=== PATIENT | female | born 1970 | race Caucasian/White ===

== ENCOUNTER 2020-05-18 15:49 | Emergency (ER) | payer BC ==
--- NOTE | 2020-05-18 16:15 | ER Document Report ---
ED Medical Screen (RME) - General Chief Complaint: Abnormal Lab Results Stated Complaint: ABNORMAL LABS/(CHEMO PATIENT) Time Seen by Provider: 05/18/20 16:12 Mode of Arrival: Ambulatory Notes: This is a 49-year-old female presented to the emergency room today with shortness of breath intermittent palpitations fluttering she is a cancer patient recently had a MUGA scan and her ejection fraction has dropped 20 points from 60-40 over the last 3 months.
--- NOTE | 2020-05-18 16:54 | RADIOLOGY REPORT (SQ) ---
EXAM DESCRIPTION: CHEST SINGLE VIEW IMAGES COMPLETED DATE/TIME: 05/18/2020 4:40 pm REASON FOR STUDY: pain sp fall COMPARISON: None. EXAM PARAMETERS: NUMBER OF VIEWS: One view. TECHNIQUE: Single frontal radiographic view of the chest acquired. RADIATION DOSE: NA LIMITATIONS: None. FINDINGS: LUNGS AND PLEURA: No opacities, masses or pneumothorax. No pleural effusion. MEDIASTINUM AND HILAR STRUCTURES: No masses. Contour normal. HEART AND VASCULAR STRUCTURES: Heart normal in size. Normal vasculature. BONES: No acute findings. HARDWARE: Right subclavian based chest port with catheter tip at SVC. OTHER: No other significant finding. IMPRESSION: No evidence of acute cardiopulmonary process. TECHNICAL DOCUMENTATION: JOB ID: [id number] 2010 [employer]- All Rights Reserved Reading location - IP/workstation name: [email or web address]
[2020-05-18 17:21] LABS: ABSOLUTE EOSINOPHILS # (AUTO) 0.1 10^3/uL (0.0-0.6); ABSOLUTE LYMPHOCYTES (AUTO) 0.8 10^3/uL (0.5-4.7); ABSOLUTE MONOCYTES (AUTO) 0.5 10^3/uL (0.1-1.4); ABSOLUTE NEUT (AUTO) 2.8 10^3/uL (1.7-8.2); BASOPHILS % (AUTO) 0.8 % (0-2); EOSINOPHILS % (AUTO) 1.5 % (0-6); HEMATOCRIT 38.3 % (36.0-47.0); HEMOGLOBIN 13.1 g/dL (12.0-15.5); MEAN CORPUSCULAR HGB CONC 34.3 g/dL (32.0-36.0); MEAN CORPUSCULAR VOLUME 91 fl (80-97); MONOCYTES % (AUTO) 11.2 % (3-13); PLATELET COUNT 269 10^3/uL (150-450); RED BLOOD COUNT 4.23 10^6/uL (3.72-5.28); RED CELL DISTRIBUTION WIDTH 14.3 % (11.5-14.0); SEGMENTED NEUTROPHILS % (AUTO) 66.5 % (42-78); TOTAL CELLS COUNTED % (AUTO) 100 %; WHITE BLOOD COUNT 4.1 10^3/uL (4.0-10.5)
[2020-05-18 17:39] LABS: ALBUMIN 4.3 g/dL (3.5-5.0); ALKALINE PHOSPHATASE 84 U/L (38-126); ANION GAP 7 (5-19); ASPARTATE AMINO TRANSFERASE 34 U/L (14-36); BILIRUBIN,TOTAL 0.5 mg/dL (0.2-1.3); BLOOD UREA NITROGEN 17 mg/dL (7-20); CALCIUM 9.5 mg/dL (8.4-10.2); CARBON DIOXIDE 27 mmol/L (22-30); CHLORIDE 103 mmol/L (98-107); GLUCOSE 114 mg/dL (75-110); POTASSIUM 4.4 mmol/L (3.6-5.0); TOTAL PROTEIN 7.1 g/dL (6.3-8.2)
--- NOTE | 2020-05-18 17:56 | ER Document Report ---
ED General - General Chief Complaint: Shortness Of Breath Stated Complaint: ABNORMAL LABS/(CHEMO PATIENT) Time Seen by Provider: 05/18/20 16:12 Mode of Arrival: Ambulatory - [facility] Notes: Chief complaint: Generalized weakness, palpitations, chest pain and dyspnea History of present illness: This is a 49-year-old female diagnosed with breast cancer approximately 1 year ago status post bilateral mastectomy, XRT and chemotherapy presenting today with complaint of insidious onset of generalized weakness, intermittent palpitations, intermittent fleeting chest pain and dyspnea over the past 1 month. Patient has just moved here from the [facility] and has no local physicians. She had a telehealth visit with her previous caregiver within the last 24 hours and was advised that a MUGA scan she had done as an outpatient last week demonstrates that her previously normal ejection fraction has dropped down to about 45%. She was advised to come to the hospital for further evaluation. Patient denies any focal neurologic symptoms. She denies any syncope or presyncope. Patient is not on any type of anticoagulation. She denies any known personal nor familial history of thromboembolic disease. She denies any pain or swelling of lower extremities. She denies any recent trauma. She denies any recent surgery. Patient describes intermittent minor palpitations. Patient reports intermittent sharp tingling discomfort in her anterior chest which lasts a few seconds at a time. No radiation of the pain. Patient is a non-smoker. She is not diabetic. Family history negative for CAD. No history of hyperlipidemia. She is not obese. HEART Score: HISTORY 0 ECG 0 AGE 1 RISK FACTORS 0 TROPONIN 0 TOTAL: 1 If HEART score is = 3 AND both tronponin measurments are normal, the 30 day risk of a major adverse cardiac event (all-cause mortality, myocardia infarction or need for coronary revscularization) is < 1% (Sensitivity 100%, NPV 100%). No current prescription medications. No known allergies. PERC SCORE HADCLOTS) H no hormone administration A Age>50 D NO DVT/PE previously C no coughing up blood L no leg swelling unilaterally O O2 sat greater than 95% T Tachycardia S no surgery/Trauma recently - Related Data Allergies/Adverse Reactions: No Known Allergies Allergy (Verified 05/18/20 16:17) Past Medical History - General Information source: Patient, Relative - Social History Smoking Status: Never Smoker Chew tobacco use (# tins/day): No Drug Abuse: None Lives with: Spouse/Significant other Family History: Reviewed & Not Pertinent - Past Medical History Cardiac Medical History: Reports: None Denies: Hx Pulmonary Embolism Pulmonary Medical History: Reports: None Endocrine Medical History: Denies: Hx Diabetes Mellitus Type 1, Hx Diabetes Mellitus Type 2 Malignancy Medical History: Reports: Hx Breast Cancer Past Surgical History: Reports: Hx Breast Surgery Review of Systems - Review of Systems Notes: Constitutional: Negative for fever. HENT: Negative for sore throat. Eyes: Negative for visual changes. Cardiovascular: As per HPI. Respiratory: As per HPI. No cough no sputum production.. Gastrointestinal: Negative for abdominal pain, vomiting or diarrhea. Genitourinary: Negative for dysuria. Musculoskeletal: Negative for back pain. Skin: Negative for rash. Neurological: Negative for headaches, focal weakness or numbness. 10 point ROS negative except as marked above and in HPI. Physical Exam - Vital signs Vitals: Temp Pulse Resp BP Pulse Ox 98.7 F 110 H 22 H 114/83 100 05/18/20 16:07 05/18/20 16:07 05/18/20 16:07 05/18/20 16:07 05/18/20 16:07 - Notes Notes: GENERAL: Well-developed well-nourished female approximately stated age appearing in no acute distress. SKIN: Good turgor no rashes. HEAD: Normocephalic atraumatic. EYES: PERRLA. EOMI. Conjunctivae and sclerae clear. EARS: CANALS AND TMS CLEAR. NOSE: CLEAR. MOUTH: Moist mucosa. Good dentition. No stridor or edema. No drooling. NECK: Supple. No masses or thyromegaly. No adenopathy. Carotids 2+ without bruits. No JVD. BACK: Symmetrical without tenderness. CHEST: Respirations unlabored. Breath sounds clear and symmetrical. HEART: Tachycardic regular rhythm. No murmur gallop or rub. ABDOMEN: Soft nontender without masses, organomegaly or rebound. Bowel sounds normally active. No bruits. GENITALIA: Deferred. EXTREMITIES: No edema. No calf tenderness. Cap refill less than 1.5 seconds. Dorsalis pedis and posterior tibial pulses 3+ and symmetrical. NEUROLOGICAL: GCS 15. Alert and oriented x3. Normal gait. Fluent speech. Cranial nerves II through XII intact. Sensorimotor and cerebellar normal. Normal tone. PSYCHIATRIC: Appropriate affect. Course - Re-evaluation Re-evalutation: 05/18/20 19:45 Patient has a normal troponin. She has a normal BNP. She has a normal chest x- ray. Her d-dimer is also normal. She has a documented decrease in ejection fraction on MUGA scan done a week ago which is probably due to cancer chemotherapy she is received. I think she stable for outpatient cardiology follow-up she will be referred to Dr. Mills. I will also refer her to Dr. Kim from oncology and to a primary care physician. Findings, clinical impression and plan of treatment have been discussed with pat ient/family. Understanding of current findings and recommendations has been acknowledged by them and there is agreement regarding disposition and follow-up. - Vital Signs Vital signs: Temp Pulse Resp BP Pulse Ox 98.7 F 110 H 14 112/79 100 05/18/20 16:07 05/18/20 16:07 05/18/20 19:00 05/18/20 19:00 05/18/20 19:00 - Laboratory Result Diagrams: 05/18/20 16:52 05/18/20 16:52 Laboratory results interpreted by me: 05/18/20 05/18/20 16:52 16:52 RDW 14.3 H Sodium 136.9 L Glucose 114 H ALT 46 H - EKG Interpretation by Me Additional EKG results interpreted by me: 05/18/20 19:41 Twelve-lead EKG from 1638 hrs. is reviewed contemporaneously by me showing sinus tachycardia rate 106. QRS axis is normal at +36 degrees. Intervals are normal. No acute ST changes. No old tracing for comparison. Indication for current study: Chest pain. 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 Schedule appointment with primary care, cardiology and oncology as directed. Referrals: [facility] [Provider Group] - Follow up as needed MACARENA KIM MD [ACTIVE STAFF] - Follow up as needed TINY MILLS MD [ACTIVE PROVISIONAL STAFF] - Follow up as needed
[2020-05-18 19:37] VITALS: BP 112/79
--- NOTE | 2020-05-18 20:05 | EKG REPORT ---
SEVERITY:- ABNORMAL ECG - SINUS TACHYCARDIA PROBABLE LEFT ATRIAL ABNORMALITY NONSPECIFIC T ABNORMALITIES, LATERAL LEADS : Confirmed by: Janice Buckner MD 18-May-2020 20:05:01
== END 2020-05-18 20:23 | disposition home or self-care (01) ==
LOC: ER 15:49
DX: I42.7 Cardiomyopathy due to drug and external agent (principal); T45.1X5A Adverse effect of antineoplastic and immunosuppressive drugs, initial encounter; C50.919 Malignant neoplasm of unspecified site of unspecified female breast; R53.1 Weakness; R00.2 Palpitations; R07.9 Chest pain, unspecified; R06.00 Dyspnea, unspecified; R00.0 Tachycardia, unspecified
CPT/HCPCS: 36415; 71045; 80053; 83735; 83880; 84484; 85025; 85379; 93005; 93010; 99285

== ENCOUNTER 2020-05-29 11:51 | Emergency (ER) | payer BC ==
[2020-05-29 11:59] VITALS: BP 123/79
--- NOTE | 2020-05-29 12:30 | ER Document Report ---
ED Medical Screen (RME) - General Chief Complaint: Headache Stated Complaint: HEADACHE Time Seen by Provider: 05/29/20 12:27 Mode of Arrival: Ambulatory Information source: Patient Notes: 49-year-old female presents to ED for complaint that she feels like something is in her head and it feels like something has hit the back of her head will hurt and then the pain comes to the front of her head. She states she has not had any injuries. She was diagnosed with breast cancer a year ago had a mastectomy in November of this year was on the chemo infusions recently her MUGA scan was at 45% so they had to stop the infusions. She states the headache is just been for the last several days. She is alert oriented respirations are nonlabored speaking in full sentences. She may end up needing a MRI we will start with blood work urine and a CAT scan. I have greeted and performed a rapid initial assessment of this patient. A comprehensive ED assessment and evaluation of the patient, analysis of test results and completion of medical decision making process will be conducted by an additional ED providers. - Related Data Allergies/Adverse Reactions: No Known Allergies Allergy (Verified 05/18/20 16:17) Past Medical History - Social History Frequency of alcohol use: None Drug Abuse: None - Past Medical History Cardiac Medical History: Denies: Hx Pulmonary Embolism Endocrine Medical History: Denies: Hx Diabetes Mellitus Type 1, Hx Diabetes Mellitus Type 2 Malignancy Medical History: Reports: Hx Breast Cancer Past Surgical History: Reports: Hx Breast Surgery Physical Exam - Vital signs Vitals: Temp Pulse Resp BP Pulse Ox 98.6 F 89 20 123/79 97 05/29/20 11:57 05/29/20 11:57 05/29/20 11:57 05/29/20 11:57 05/29/20 11:57 Course - Vital Signs Vital signs: Temp Pulse Resp BP Pulse Ox 98.6 F 89 20 123/79 97 05/29/20 11:57 05/29/20 11:57 05/29/20 11:57 05/29/20 11:57 05/29/20 11:57
[2020-05-29 13:02] LABS: ABSOLUTE EOSINOPHILS # (AUTO) 0.1 10^3/uL (0.0-0.6); ABSOLUTE LYMPHOCYTES (AUTO) 0.8 10^3/uL (0.5-4.7); ABSOLUTE MONOCYTES (AUTO) 0.4 10^3/uL (0.1-1.4); ABSOLUTE NEUT (AUTO) 1.7 10^3/uL (1.7-8.2); EOSINOPHILS % (AUTO) 1.8 % (0-6); HEMATOCRIT 35.4 % (36.0-47.0); HEMOGLOBIN 12.2 g/dL (12.0-15.5); LYMPHOCYTES % (AUTO) 25.8 % (13-45); MEAN CORPUSCULAR HEMOGLOBIN 31.7 pg (27.0-33.4); MEAN CORPUSCULAR HGB CONC 34.6 g/dL (32.0-36.0); MEAN CORPUSCULAR VOLUME 92 fl (80-97); MONOCYTES % (AUTO) 14.7 % (3-13); PLATELET COUNT 250 10^3/uL (150-450); RED BLOOD COUNT 3.86 10^6/uL (3.72-5.28); RED CELL DISTRIBUTION WIDTH 14.4 % (11.5-14.0); SEGMENTED NEUTROPHILS % (AUTO) 56.7 % (42-78); TOTAL CELLS COUNTED % (AUTO) 100 %
[2020-05-29 13:15] LABS: ALBUMIN 3.9 g/dL (3.5-5.0); ALKALINE PHOSPHATASE 70 U/L (38-126); ASPARTATE AMINO TRANSFERASE 29 U/L (14-36); BILIRUBIN,TOTAL 0.5 mg/dL (0.2-1.3); BLOOD UREA NITROGEN 14 mg/dL (7-20); CALCIUM 9.1 mg/dL (8.4-10.2); GLUCOSE 91 mg/dL (75-110); TOTAL PROTEIN 6.5 g/dL (6.3-8.2)
[2020-05-29 13:20] LABS: ANION GAP 5 (5-19); CARBON DIOXIDE 26 mmol/L (22-30); CHLORIDE 107 mmol/L (98-107)
[2020-05-29] MEDS ORDERED: NORMAL SALINE 1000 ML 1,000 ML IV ONE (13:25)
[2020-05-29] MEDS ORDERED: HYDROMORPHONE HCL INJ/PF 2 MG/ML AMPULE IV ONE (13:25)
--- NOTE | 2020-05-29 13:30 | ER Document Report ---
ED General - General Chief Complaint: Headache Stated Complaint: HEADACHE Time Seen by Provider: 05/29/20 12:27 Mode of Arrival: Ambulatory Notes: Patient is a 49-year-old white female with a history of breast cancer status post mastectomy who was on chemotherapy but had to stop due to an EF of 45% who presents to the emergency department with a chief complaint of pain in the head. She states it does not feel like a headache per se. She reports that about a week ago she started to get these pains that are somewhat random in nature. She states it feels as though someone strikes her in the back of the left head occipital region and the pain radiates around to the left frontal area and continues to throb in the left frontal area. She states she is noticed that movement of the neck seems to worsen the pain. She states that if she goes from lying flat to sitting up the pain intensifies. She also states she was walking in [facility] a couple days ago and looked up which provoked pain. She states she is been very careful not to move her neck much recently because she is noticed that any neck movements as of late will cause that sudden striking pain to the back of the head. She states despite these episodes of sudden pain in the back she has an ongoing constant throbbing primarily in the left frontal area. She admits to some mild occasional dizziness that is associated with the severe attacks. She denies any visual disturbances. Denies any numbness, tingling or weakness. Denies any chest pain or shortness of breath. No head injury or loss of consciousness. No syncopal episodes. - Related Data Allergies/Adverse Reactions: No Known Allergies Allergy (Verified 05/18/20 16:17) Past Medical History - General Information source: Patient - Social History Smoking Status: Never Smoker Frequency of alcohol use: None Drug Abuse: None Family History: Reviewed & Not Pertinent - Past Medical History Cardiac Medical History: Denies: Hx Pulmonary Embolism Endocrine Medical History: Denies: Hx Diabetes Mellitus Type 1, Hx Diabetes Mellitus Type 2 Malignancy Medical History: Reports: Hx Breast Cancer Past Surgical History: Reports: Hx Breast Surgery Review of Systems - Review of Systems Constitutional: denies: Fever EENT: denies: Blurred vision Cardiovascular: denies: Chest pain Respiratory: denies: Short of breath Gastrointestinal: denies: Abdominal pain, Diarrhea, Nausea, Vomiting Genitourinary: denies: Pain Female Genitourinary: denies: Vaginal discharge Musculoskeletal: Neck pain Skin: denies: Lesions Hematologic/Lymphatic: denies: Easy bruising Neurological/Psychological: Headaches. denies: Lost consciousness Physical Exam - Vital signs Vitals: Temp Pulse Resp BP Pulse Ox 98.6 F 89 20 123/79 97 05/29/20 11:57 05/29/20 11:57 05/29/20 11:57 05/29/20 11:57 05/29/20 11:57 - General General appearance: Alert Notes: Appears uncomfortable. Holds her neck very still with a slight downward gaze - HEENT Head: Normocephalic, Atraumatic. No: Caldwell's sign, Ecchymosis, Open wounds, Racoon's eyes, Tenderness Eyes: Normal Conjunctiva: Normal Extraocular movements intact: Yes Eyelashes: Normal Pupils: PERRL Ears: Normal External canal: Normal Tympanic membrane: Normal Nasal: Normal Course - Re-evaluation Re-evalutation: 05/29/20 15:[address] Dee Dee garcia, oncologist who recommended MRI of the brain with contrast as well as 10 mg IV dexamethasone. He advised if the patient's pain can be controlled that it is appropriate for discharge and outpatient follow-up where they will discuss radiation therapy. If we cannot control her pain he agreed that it is appropriate to admit the patient for pain control and he will consult on her tomorrow and potentially begin radiation therapy tomorrow. He requested a CT chest abdomen and pelvis for further metastatic evaluation however because the patient received contrast with her CT head she is unable to receive any further contrast for the remaining studies at this time so we will have to wait until tomorrow while either inpatient or until they can be done outpatient by Dr. Dee Dee garcia once she has had time to clear the current contrast. Will obtain the MRI of the brain give the dexamethasone to continue to monitor the patient. If her pain is controlled we will plan for discharge as per Dr. Dee Dee garcia's recommendation. If she is discharged she recommended she received 4 mg of dexamethasone by mouth every 6 hours. If she is admitted for milligrams of dexamethasone IV every 6 hours. 05/29/20 18:08 MRI has returned showing several lesions throughout some with areas of edema and necrosis. A mild mass-effect is noted but there is no shift or herniation. Patient is alert and oriented x4. She is got a normal neurological exam at this point. She was given IV dexamethasone. She had a intolerable reaction to the ketamine and requested she not get that anymore although she states it did help the headache a little bit. She reports the Dilaudid did not help at all. She is still hurting and requesting more medications, now that she is found out about these lesions and the metastasis she is very anxious and shaking and requesting something for anxiety. We will try 100 mics of fentanyl and 0.5 of Ativan IV. At this point the patient is adamant that she would like to go home despite being admitted for pain control and further care tomorrow with Dr. Dee Dee garcia. I discussed with them the potential for seizures. Instructed the patient that she is not allowed to drive or operate any machinery or do any tasks that might lead to significant injury to herself or others should she have a seizure. The hope is that by giving her the dexamethasone here, prescription for home a prescription for Ativan that this will decrease her likelihood of seizure and decrease her seizure threshold. We also hope to control her pain at home until she can see the oncologist hopefully tomorrow. She understands that she is free to return here for admission for pain control should she not be able to control the pain at home and it be too unbearable. Her understands that if she should have a seizure he is to call 911 immediately and have the patient transported to the emergency room. Dr. Dee Dee garcia was given the patient's information, name, date of and cell phone number. The patient will be given his information as well. Counseled them regarding the importance of o utpatient follow-up and advised that they return here or any ER immediately with any new, persistent or worsening symptoms. They verbalized understood and agreed. 05/29/20 19:06 Patient reevaluated at this time. Her headache has significantly improved. She is much more relaxed. Her and her still agree that they would like to be discharged home to go home and visit with her daughter and discussed the news with her in person. They were reminded of the discussions above potential compl ications and or problems that may occur. They verbalized understanding and agreed. They will call Dr. Dee Dee garcia tomorrow for further care and management. Patient stable and appropriate for discharge and outpatient follow-up at this time. - Vital Signs Vital signs: Temp Pulse Resp BP Pulse Ox 98.6 F 89 20 123/79 97 05/29/20 11:57 05/29/20 11:57 05/29/20 11:57 05/29/20 11:57 05/29/20 11:57 - Laboratory Result Diagrams: 05/29/20 12:34 05/29/20 12:34 Laboratory results interpreted by me: 05/29/20 12:34 WBC 3.0 L Hct 35.4 L RDW 14.4 H [place] % (Auto) 14.7 H Discharge - Discharge Clinical Impression: Brain metastases Cephalgia Qualifiers: Headache type: unspecified Headache chronicity pattern: acute headache Intractability: not intractable Qualified Code(s): R51 - Headache Condition: Stable Disposition: HOME, SELF-CARE Instructions: Headache ([facility]), Oral Narcotic Medication ([facility]) Additional Instructions: Please call Dr. Kim tomorrow for continued outpatient care and management. Please return here or any ER immediately with any new, persistent or worsening symptoms. Prescriptions: Oxycodone HCl [Oxy-Ir 5 mg Tablet] 10 mg PO Q4HP PRN #18 tab PRN Reason: Lorazepam [Ativan 0.5 mg Tablet] 0.5 mg PO Q4 PRN #30 tab PRN Reason: Dexamethasone [Decadron 4 Mg Tablet] 4 mg PO Q6 #24 tablet Referrals: AMCARENA KIM MD [ACTIVE STAFF] - Follow up as needed
[2020-05-29 14:21] LABS: INTERNATIONAL RATION (INR) 0.87; PARTIAL THROMBOPLASTIN TIME 26.5 SEC (23.5-35.8); PROTHROMBIN TIME 12.1 SEC (11.4-15.4)
[2020-05-29 14:21] LABS: APPEARANCE,URINE CLEAR; BILIRUBIN,URINE NEGATIVE (NEGATIVE); COLOR,URINE YELLOW; GLUCOSE, URINE NEGATIVE (NEGATIVE); KETONES,URINE NEGATIVE (NEGATIVE); LEUKOCYTE ESTERASE,URINE NEGATIVE (NEGATIVE); NITRITE,URINE NEGATIVE (NEGATIVE); PROTEIN,URINE NEGATIVE (NEGATIVE); URINE SPECIFIC GRAVITY 1.017; UROBILINOGEN,URINE NEGATIVE mg/dL (<2.0)
[2020-05-29] MEDS ORDERED: KETAMINE HCL INJ 500 MG/10 ML VIAL IV ONE (14:41)
--- NOTE | 2020-05-29 14:42 | RADIOLOGY REPORT (SQ) ---
EXAM DESCRIPTION: CT CERVICAL SPINE WITHOUT IMAGES COMPLETED DATE/TIME: 05/29/2020 2:29 pm REASON FOR STUDY: pain COMPARISON: None. TECHNIQUE: Axial images acquired through the cervical spine without intravenous contrast. Images re viewed with lung, soft tissue and bone windows. Reconstructed coronal and sagittal MPR images review ed. Images stored on PACS. All CT scanners at this facility use dose modulation, iterative reconstruction, and/or weight based d osing when appropriate to reduce radiation dose to as low as reasonably achievable (ALARA). [facility]: Dose Right [facility]: CareDose [facility]: Dose Right [facility]: Teradose 4D [facility]: [employer] RADIATION DOSE: CT Rad equipment meets quality standard of care and radiation dose reduction techniq ues were employed. CTDIvol: 17.4 mGy. DLP: 328 mGy-cm. mGy. LIMITATIONS: None. FINDINGS: ALIGNMENT: Anatomic. MINERALIZATION: Normal. VERTEBRAL BODIES: No fractures or dislocation. 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 DISCS: No significant disc disease. FACETS, LATERAL MASSES, POSTERIOR ELEMENTS: No fractures. No dislocation. No acute findings. HARDWARE: None in the spine. VISUALIZED RIBS: No fractures. LUNG APICES AND SOFT TISSUES: No significant or acute findings. IMPRESSION: No acute fracture at the cervical spine. TECHNICAL DOCUMENTATION: JOB ID: [id number] [employer]- Quality ID # 436: Final reports with documentation of one or more dose reduction techniques (e.g., Au tomated exposure control, adjustment of the mA and/or kV according to patient size, use of iterative reconstruction technique) 2010 [employer]- All Rights Reserved Reading location - IP/workstation name: [email or web address]
--- NOTE | 2020-05-29 14:43 | RADIOLOGY REPORT (SQ) ---
EXAM DESCRIPTION: CT HEAD COMBO IMAGES COMPLETED DATE/TIME: 05/29/2020 2:29 pm REASON FOR STUDY: acute ARREDONDO, h/o CA COMPARISON: None. TECHNIQUE: Axial images acquired through the brain without and with intravenous contrast. Images re viewed with bone, brain and subdural windows. Additional sagittal and coronal reconstructions were g enerated. Images stored on PACS. All CT scanners at this facility use dose modulation, iterative reconstruction, and/or weight based d osing when appropriate to reduce radiation dose to as low as reasonably achievable (ALARA). [facility]: Dose Right [facility]: CareDose [facility]: Dose Right [facility]: Teradose 4D [facility]: [employer] CONTRAST TYPE AND DOSE: contrast/concentration: Isovue 350.00 mmol/ml; Total Contrast Delivered: 50. 0 ml; Total Saline Delivered: 34.7 ml RENAL FUNCTION: GFR > 60. RADIATION DOSE: CT Rad equipment meets quality standard of care and radiation dose reduction techniq ues were employed. CTDIvol: 53.2 mGy. DLP: 911 mGy-cm.. LIMITATIONS: None. FINDINGS: VENTRICLES: Normal size and contour. CEREBRUM: Multiple subcentimeter enhancing intra-axial lesions consistent with metastatic disease. 1 of the larger lesions approaches 10 mm in the left perisylvian frontal lobe series 2, image 23. No hemorrhage or mass effect. CEREBELLUM: At least 3 metastatic lesions in the cerebellum. EXTRA-AXIAL SPACES: No fluid collections. No enhancing lesions. ORBITS AND GLOBE: No intra- or extraconal masses. Normal contour of globe without masses. CALVARIUM: No fracture. PARANASAL SINUSES: No fluid or mucosal thickening. SOFT TISSUES: No mass or hematoma. OTHER: No other significant finding. IMPRESSION: Brain metastasis. EVIDENCE OF ACUTE STROKE: NO. TECHNICAL DOCUMENTATION: JOB ID: [id number] Quality ID # 436: Final reports with documentation of one or more dose reduction techniques (e.g., Au tomated exposure control, adjustment of the mA and/or kV according to patient size, use of iterative reconstruction technique) 2010 [employer]- All Rights Reserved Reading location - IP/workstation name: [email or web address]
[2020-05-29] MEDS ORDERED: DEXAMETHASONE SOD PHOS INJ 10 MG/1 ML VIAL IV ONE (15:19)
[2020-05-29] MEDS ORDERED: ONDANSETRON HCL INJ/PF 4 MG/2 ML SDV ONE (15:22)
[2020-05-29] MEDS ORDERED: PROMETHAZINE HCL INJ 25 MG/1 ML VIAL IV ONE (15:25)
[2020-05-29] MEDS ORDERED: DEXAMETHASONE SOD PHOSPHATE INJ 4 MG/1 ML VIAL IV ONE (16:12)
--- NOTE | 2020-05-29 17:31 | RADIOLOGY REPORT (SQ) ---
EXAM DESCRIPTION: MRI HEAD COMBO IMAGES COMPLETED DATE/TIME: 05/29/2020 3:41 pm REASON FOR STUDY: brain mets. Dizziness, headache, left side and 5 head pain. History of breast ca ncer. COMPARISON: CT head same date. TECHNIQUE: Multiplanar imaging includes noncontrasted T1, T2, FLAIR, diffusion with ADC map and post gadolinium contrast T1 sequences. Images stored on PACS. CONTRAST TYPE AND DOSE: 10 mL ProHance RENAL FUNCTION: Not indicated. ACR Type II contrast agent associated with few, if any, unconfounded cases of NSF LIMITATIONS: None. FINDINGS: ANATOMY: No anomalies. Normal vascular flow voids. Pituitary fossa normal. CSF SPACES: Normal in size and contour. No hemorrhage. CEREBRUM: There are multiple supratentorial brain metastases many along the curtis-white junction, for example in the left high parietal lobe a 1 cm metastasis (image 179). There are multiple additional metastases including a tiny deep white matter lesion in the right parietal lobe (image 158). Along t he right parietal lobe sulci, there is a 0.9 cm lesion with surrounding vasogenic edema and mild mass effect. (Image 153). There is a necrotic appearing metastasis in the inferior right frontal lobe w ith surrounding vasogenic edema measuring 1 cm (image 113). There is also a lesion along the mesial right temporal lobe measuring 0.6 cm. At least 2 intraventricular metastases, in the left anterior h orn lateral ventricle a 6 mm metastasis (image 123) and at the inferior right lateral ventricle also 0.6 cm. No evidence of hydrocephalus. No evidence of herniation. POSTERIOR FOSSA: There are at least 7 cerebellar metastases, the largest in the right cerebellar orestes sphere measures 2.2 x 2.1 cm with cystic and solid components (image 76). There is mild surrounding vasogenic edema with milld mass effect as seen by effacement of the folia. There is also a similar c ystic and solid metastasis in the left cerebellar hemisphere measuring 2.1 x 1.6 cm (image 61). Jeffrey tional predominantly solid metastases are also seen in both cerebellar hemispheres, as well as a 0.6 cm lesion at the right cerebellar peduncle. This one has mild surrounding vasogenic edema. No evide nce of herniation or intratumoral hemorrhage. DIFFUSION IMAGING: Negative for acute or subacute infarction. ORBITS: No masses. Globes normal. PARANASAL SINUSES: No fluid levels. Mucosa normal. OTHER: No other significant finding. IMPRESSION: 1. Multifocal supratentorial and cerebellar metastases as described. There is mild mass effect in th e cerebellum with no evidence of herniation. Several metastases in the supratentorial region demonst rate surrounding vasogenic edema with no significant mass effect or transtentorial herniation. 2. No acute intracranial hemorrhage or evidence of acute ischemia. EVIDENCE OF ACUTE STROKE: NO. COMMENT: Findings discussed with Stanton Larry on 05/29/2020 at 1720 hours. TECHNICAL DOCUMENTATION: JOB ID: [id number] 2010 [employer]- All Rights Reserved Reading location - IP/workstation name: [email or web address]
[2020-05-29] MEDS ORDERED: LORAZEPAM INJ 2 MG/1 ML VIAL IV ONE (18:08)
[2020-05-29] MEDS ORDERED: FENTANYL CITRATE INJ/PF 100 MCG/2 ML AMPUL IV ONE (18:08)
[2020-05-29] MEDS ORDERED: HYDROCODONE/ACETAMINOPHEN 5-325 MG (6 TAB/ER DISP) PO PRN (19:19)
== END 2020-05-29 19:32 | disposition home or self-care (01) ==
LOC: ER 11:51
DX: C50.919 Malignant neoplasm of unspecified site of unspecified female breast (principal); C79.31 Secondary malignant neoplasm of brain; R51 Headache; R42 Dizziness and giddiness; F41.9 Anxiety disorder, unspecified; Z90.10 Acquired absence of unspecified breast and nipple
CPT/HCPCS: 99284; 96361; 96374; 96375; 36415; 85025; 85610; 85730; 80053; 81001; 70553; 70470; 72125; A9576; J1100; J3010; J3490; J1170; J2060; J2550; J7030

== ENCOUNTER → 2020-06-08 | Outpatient (CLI) | payer BC ==
--- NOTE | 2020-06-08 13:23 | RADIOLOGY REPORT (SQ) ---
EXAM DESCRIPTION: CT CHEST WITH; CT ABD/PELVIS WITH IV ONLY IMAGES COMPLETED DATE/TIME: 06/08/2020 9:09 am REASON FOR STUDY: BREAST CA (C50.412) C50.412 MALIG NEOPLASM OF UPPER-OUTER QUADRANT OF LEFT FEMAL COMPARISON: None. CONTRAST TYPE AND DOSE: contrast/concentration: Isovue 350.00 mmol/ml; Total Contrast Delivered: 79. 0 ml; Total Saline Delivered: 68.0 ml RENAL FUNCTION: GFR > 60. TECHNIQUE: CT scan of the chest performed using helical scanning technique with dynamic intravenous contrast injection. Images reviewed with lung, soft tissue and bone windows. Reconstructed coronal a nd sagittal MPR images reviewed. All images stored on PACS. CT scan of the abdomen and pelvis performed with intravenous and without oral contrastusing helical s austin technique with dynamic intravenous contrast injection. Images reviewed with lung, soft tissu e and bone windows. Reconstructed coronal and sagittal MPR images reviewed. Delayed images for eval uation of the urinary system also acquired and evaluated. All images stored on PACS. All CT scanners at this facility use dose modulation, iterative reconstruction, and/or weight based d osing when appropriate to reduce radiation dose to as low as reasonably achievable (ALARA). [facility]: Dose Right [facility]: CareDose [facility]: Dose Right [facility]: Teradose 4D [facility]: Smart Technologies RADIATION DOSE: CT Rad equipment meets quality standard of care and radiation dose reduction techniq ues were employed. CTDIvol: 5.8 - 7.5 mGy. DLP: 1031 mGy-cm. . LIMITATIONS: None. FINDINGS: CHEST: LUNGS AND PLEURA: No opacities, nodules, masses. No pneumothorax. No effusions. HILAR AND MEDIASTINAL STRUCTURES: No identified masses or abnormal nodes. HEART AND VASCULAR STRUCTURES: No aneurysm or dissection. No central pulmonary emboli. No pericardi al effusion. Incidental note is made of normal variant 2 vessel aortic arch. HARDWARE: Right anterior chest wall Port-A-Cath terminates at the level of the cavoatrial junction. THYROID AND OTHER SOFT TISSUES: Posttreatment changes are seen of the left breast with skin thickenin g consistent with radiation treatment. No axillary lymphadenopathy. Normal appearance of the thyroi d gland. BONES: No suspicious lytic or blastic osseous lesions. No acute findings. OTHER: No other significant finding. ABDOMEN AND PELVIS: LIVER: Diffusely decreased attenuation with sparing about the gallbladder fossa, consistent with hepa tic steatosis. No focal mass lesion. No intrahepatic biliary dilatation. SPLEEN: Normal size. No focal lesions. PANCREAS: No masses. No significant calcifications. No adjacent inflammation or peripancreatic fluid collections. Pancreatic duct not dilated. GALLBLADDER: No identified stones by CT criteria. No inflammatory changes to suggest cholecystitis. ADRENAL GLANDS: No significant masses or asymmetry. RIGHT KIDNEY AND URETER: No solid masses. No significant calcification. No hydronephrosis or hydroure ter. LEFT KIDNEY AND URETER: No solid masses. No significant calcification. No hydronephrosis or hydrouret er. AORTA AND VESSELS: No aneurysm. No dissection. Renal arteries, SMA, celiac without stenosis. RETROPERITONEUM: No retroperitoneal adenopathy, hemorrhage or masses. BOWEL AND PERITONEAL CAVITY: No masses or inflammatory changes. No free fluid or peritoneal masses. APPENDIX: Not visualized. ABDOMINAL WALL: No masses. No hernias. PELVIS: No mass or free fluid. Normal bladder. BONES: No suspicious lytic or blastic osseous lesions. No acute findings. OTHER: No other significant finding. IMPRESSION: No evidence of primary or metastatic disease. Post treatment changes of the left breast . Right Port-A-Cath demonstrating appropriate positioning. TECHNICAL DOCUMENTATION: JOB ID: [id number] Quality ID # [id number]: Final reports with documentation of one or more dose reduction techniques (e.g., Au tomated exposure control, adjustment of the mA and/or kV according to patient size, use of iterative reconstruction technique) 2010 [employer]- All Rights Reserved Reading location - IP/workstation name: [email or web address]
--- NOTE | 2020-06-08 13:27 | RADIOLOGY REPORT (SQ) ---
EXAM DESCRIPTION: NM WHOLE BODY BONE SCAN IMAGES COMPLETED DATE/TIME: 06/08/2020 11:59 am REASON FOR STUDY: BREAST CA (C50.412) C50.412 MALIG NEOPLASM OF UPPER-OUTER QUADRANT OF LEFT FEMAL COMPARISON: Various imaging studies RADIONUCLIDE AND DOSE: 20 millicuries Tc99m HDP. The route of agent administration: Intravenous. ADDITIONAL DRUGS AND DOSES: None. TECHNIQUE: Routine delayed images at 3 hours post radionuclide injection acquired of the bony skelet on including anterior and posterior whole-body projections and additional focused images as needed. LIMITATIONS: None. FINDINGS: BONES: There is a small area of increased activity in the anterior right 7th rib near the costochondral junction. There is focal uptake at the sternomanubrial joint. Mild degenerative alegre es are seen on the CT chest of this same date. No other significant abnormal areas of uptake are kedar reciated. KIDNEYS: Symmetric excretion without obstruction. OTHER: No other significant finding. IMPRESSION: There are 2 areas of increased activity as described. These likely represent degenerati ve change, but metastatic disease cannot entirely be excluded. COMMENT: Quality measure 147: Current bone scan is compared with any available plain radiographs, p rior bone scans, and CT/MRI. TECHNICAL DOCUMENTATION: JOB ID: [id number] 2010 [employer]- All Rights Reserved Reading location - IP/workstation name: [email or web address]
== END ==
LOC: RAD 08:37
PROVIDERS: ATTEND Internal Medicine
DX: C50.412 Malignant neoplasm of upper-outer quadrant of left female breast (principal)
CPT/HCPCS: 78306; 71260; 74177; A9503; Q9969

== ENCOUNTER → 2020-06-24 | Outpatient (CLI) | payer BC ==
--- NOTE | 2020-06-24 18:20 | RADIOLOGY REPORT (SQ) ---
EXAM DESCRIPTION: NM MUGA REST IMAGES COMPLETED DATE/TIME: 06/24/2020 1:43 pm REASON FOR STUDY: MALIG NEOPLASM OF UPPER-OUTER QUADRANT OF LEFT FEMALE BREAST C50.412 MALIG NEOPLA SM OF UPPER-OUTER QUADRANT OF LEFT FEMAL COMPARISON: None. RADIONUCLIDE AND DOSE: 26.6 mCi technetium 99m labeled red blood cells The route of agent administration: Intravenous TECHNIQUE: Following administration of the radionuclide, gated images of the heart are obtained in t hree projections. Left ventricular functional analysis performed. LIMITATIONS: None. FINDINGS: LEFT VENTRICULAR FUNCTION: EJECTION FRACTION: 55%. END-DIASTOLIC VOLUME: 81 mL. END-SYSTOLIC VOLUME: 34 mL. WALL MOTION: No focal wall motion abnormalities. OTHER: No other significant finding. IMPRESSION: NORMAL CARDIAC MUGA STUDY. NORMAL LEFT VENTRICULAR FUNCTION WITH VALUES ABOVE. TECHNICAL DOCUMENTATION: JOB ID: [id number] 2010 [employer]- All Rights Reserved Reading location - IP/workstation name: [email or web address]
== END ==
LOC: RAD 11:36
PROVIDERS: ATTEND Internal Medicine
DX: C50.412 Malignant neoplasm of upper-outer quadrant of left female breast (principal); R06.02 Shortness of breath
CPT/HCPCS: 78472; A9560; Q9969

== ENCOUNTER → 2020-08-31 | Outpatient (CLI) | payer BC ==
--- NOTE | 2020-08-31 14:50 | RADIOLOGY REPORT (SQ) ---
EXAM DESCRIPTION: NM WHOLE BODY BONE SCAN IMAGES COMPLETED DATE/TIME: 08/31/2020 2:38 pm REASON FOR STUDY: C79.31 SECONDARY MALIGNANT NEOPLASM OF BRAIN C79.31 SECONDARY MALIGNANT NEOPLASM OF BRAIN COMPARISON: CT chest abdomen pelvis done earlier the same day. RADIONUCLIDE AND DOSE: 21.8 millicuries Tc99m MDP. The route of agent administration: Intravenous. ADDITIONAL DRUGS AND DOSES: None. TECHNIQUE: Routine delayed images at 3 hour post radionuclide injection acquired of the bony skeleto n including anterior and posterior whole-body projections and additional focused images as needed. LIMITATIONS: None. FINDINGS: BONES: There is focal increased metabolic activity at T11 and T12 posteriorly near the cos tovertebral junction. No corresponding CT abnormalities. Uptake in the right flank posteriorly is m ost consistent with renal activity. Mild increased uptake in the right 7th anterior rib is again not ed but less apparent on today's study. KIDNEYS: Symmetric excretion without obstruction. OTHER: No other significant finding. IMPRESSION: Focal uptake on the right posteriorly at the costovertebral junctions of the 11th and 12 th ribs. No corresponding CT abnormality. Findings are nonspecific but most likely degenerative. U ptake in the right anterior 7th rib is unchanged. COMMENT: Quality measure 147: Current bone scan is compared with any available plain radiographs, p rior bone scans, and CT/MRI. TECHNICAL DOCUMENTATION: JOB ID: [id number] 2010 [employer]- All Rights Reserved Reading location - IP/workstation name: [email or web address]
--- NOTE | 2020-08-31 16:22 | RADIOLOGY REPORT (SQ) ---
EXAM DESCRIPTION: CT CHEST WITH; CT ABD/PELVIS WITH IV ONLY IMAGES COMPLETED DATE/TIME: 08/31/2020 10:24 am REASON FOR STUDY: C79.31 SECONDARY MALIGNANT NEOPLASM OF BRAIN C79.31 SECONDARY MALIGNANT NEOPLASM OF BRAIN. Metastatic breast cancer. Previous hysterectomy and cholecystectomy. Right upper quadrant pain. COMPARISON: 06/08/2020 CONTRAST TYPE AND DOSE: contrast/concentration: Isovue 350.00 mmol/ml; Total Contrast Delivered: 80. 0 ml; Total Saline Delivered: 26.8 ml RENAL FUNCTION: GFR > 60. TECHNIQUE: CT scan of the chest performed using helical scanning technique with dynamic intravenous contrast injection. Images reviewed with lung, soft tissue and bone windows. Reconstructed coronal a nd sagittal MPR images reviewed. All images stored on PACS. CT scan of the abdomen and pelvis performed with intravenous and oral contrast using helical scanning technique with dynamic intravenous contrast injection. Images reviewed with lung, soft tissue and b one windows. Reconstructed coronal and sagittal MPR images reviewed. Delayed images for evaluation of the urinary system also acquired and evaluated. All images stored on PACS. All CT scanners at this facility use dose modulation, iterative reconstruction, and/or weight based d osing when appropriate to reduce radiation dose to as low as reasonably achievable (ALARA). [facility]: Dose Right [facility]: CareDose [facility]: Dose Right [facility]: Teradose 4D [facility]: [employer] RADIATION DOSE: CT Rad equipment meets quality standard of care and radiation dose reduction techniq ues were employed. CTDIvol: 7.0 - 12.2 mGy. DLP: 1449 mGy-cm. . LIMITATIONS: None. FINDINGS: CHEST: AXILLAE: No adenopathy. CHEST WALL: Posttreatment changes of the left breast medially, stable from prior. No recurrent chest wall mass. LUNGS: Trachea has normal caliber and appearance. No bronchial wall thickening or bronchiectasis. N o focal consolidation. No significant ground-glass attenuation. No suspicious pulmonary nodules. PLEURA: No pleural effusion or pneumothorax. THYROID: No masses or significant asymmetry. HILAR AND MEDIASTINAL STRUCTURES: Small amount of residual thymic tissue, stable in appearance from p revious, possibly thymic rebound. No mediastinal or hilar adenopathy. Esophagus is unremarkable. AORTA AND GREAT VESSELS: No aneurysm. No dissection. PULMONARY ARTERIES: No identified pulmonary emboli. Study not optimized for the pulmonary arteries. HEART: Normal size. Trace pericardial effusion/ pericardial thickening, stable. HARDWARE AND LIFELINES: Right MediPort catheter with tip at the cavoatrial junction unchanged. BONES: No suspicious bone lesions. OTHER: No other significant finding. ABDOMEN AND PELVIS: LIVER: The liver has normal size and contour. There is moderate diffuse hepatic steatosis. No focal hepatic mass. Hepatic and portal veins are patent. No biliary ductal dilation. SPLEEN: Normal size. No focal lesions. PANCREAS: No masses. No significant calcifications. No adjacent inflammation or peripancreatic flui d collections. Pancreatic duct not dilated. GALLBLADDER: No identified stones by CT criteria. No inflammatory changes to suggest cholecystitis. ADRENAL GLANDS: No significant masses or asymmetry. RIGHT KIDNEY AND URETER: No solid masses. No significant calcifications. No hydronephrosis or hyd roureter. LEFT KIDNEY AND URETER: No solid masses. No significant calcifications. No hydronephrosis or hydr oureter. AORTA AND VESSELS: No aneurysm. No dissection. Renal arteries, SMA, celiac without stenosis. RETROPERITONEUM: No retroperitoneal adenopathy, hemorrhage or masses. LARGE AND SMALL BOWEL: No dilatation. No masses. No wall thickening. APPENDIX: Normal. ABDOMINAL WALL: No hernia or masses. PERITONEAL CAVITY: No free air. No free fluid. No peritoneal implants or masses. PELVIS: Post hysterectomy. Calcified pelvic phleboliths. Urinary bladder has normal contour. No bl adder wall thickening, intraluminal bladder mass or debris. BONES: No suspicious bone lesions. OTHER: No other significant finding. IMPRESSION: 1. No evidence of metastatic disease in the chest, abdomen or pelvis. 2. Post treatment changes in the left chest wall are stable. 3. Moderate hepatic steatosis. TECHNICAL DOCUMENTATION: JOB ID: [id number] Quality ID # 436: Final reports with documentation of one or more dose reduction techniques (e.g., Au tomated exposure control, adjustment of the mA and/or kV according to patient size, use of iterative reconstruction technique) 2010 [employer]- All Rights Reserved Reading location - IP/workstation name: [email or web address]
--- OUTSIDE RECORDS SUMMARY | 2020-09-01 18:28 | XMS REPORT ---
:1970 Author Organization [facility] Address [facility] [address] [place] [address] Care Team Providers Name Role Phone Daniele Husain M.D. Attending Clinician Unavailable Allergies, Adverse Reactions, Alerts This patient has no known allergies or adverse reactions. Medications Ordered Filled Start Stop Current Ordering Indication Dosage Frequency Signature Comments Components Medication Medication Date Date Medication? Clinician (SIG) Name Name Citalopram 2020-1 Yes 1 Hydrobromid 0-07 e 00:00: 00 Ondansetron 2020-0 No 8mg Ondansetro HCl 9-29 n HCl 00:00: 00 Ondansetron 2020-0 No 8mg Ondansetro HCl 9-24 n HCl 00:00: 00 Ondansetron 2020-0 No 8mg Ondansetro HCl 9-21 n HCl 00:00: 00 Morphine 2020-0 Yes 1 Sulfate ER 07-11 00:00: 00 Hydration 2020-0 2020- No 1000mL 1000mL NS 07-11- 00:00: 00:00 00 :00 Ondansetron 2020-0 2020- No 8mg Ondansetro HCl 9-16 09-29 n HCl 00:00: 00:00 00 :00 Hydration 2020-0 2020- No 500mL 500mL NS 16 -16 00:00: 00:00 00 :00 Zolpidem 2020-0 Yes 1 Tartrate 9 00:00: 00 Ondansetron 2020-0 Yes 1 HCl 8- 00:00: 00 Promethazin 2020-0 Yes 1 e HCl 8- 00:00: 00 ALPRAZolam 2020-0 No 1 8- 00:00: 00 Dexamethaso 2020-0 Yes 1 ne 8- 00:00: 00 Keppra 2020-0 Yes 1 8- 00:00: 00 oxyCODONE 2020-0 Yes 1 HCl 8- 00:00: 00 ALPRAZolam 2019-0 Yes 1 8-11 00:00: 00 Problems Condition Condition Condition Status Onset Resolution Last Treatin g Comments Name Details Category Date Date Treatment Clinician Date 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 00 Asthenia Asthenia Diagnosis active 2019-10 0-07 00:00: 00 Dehydration Dehydration Diagnosis active 9-16 00:00: 00 Nausea Nausea Diagnosis active 16 00:00: 00 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 Anxiety Anxiety Diagnosis active Insomnia Insomnia Diagnosis active 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 Procedures Procedure Date / Time Performed Performing Clinician Devic e port placement b/l mastectomy ASIYA/BSO Results Test Description Test Time Test Comments Text Results Atomic Results Result Comments WBC 2020-08-01 09:01:00 Test Item Value Reference Range Comments WBC (test code = WBC) 3.5000 4.0000-10.0000 Lymphocytes % (test code = Lymphocytes %) 25.2000 % 22.400 0-43.6000 MID% (test code = MID%) 7.1000 % 1.2000-11.2000 Neutrophils % (test code = Neutrophils %) 67.7000 % 48.900 0-69.9000 Lymphocytes (test code = Lymphocytes) 0.9000 1.2000-3.2 000 MID (test code = MID) 0.2000 0.1000-1.1000 Neutrophils (test code = Neutrophils) 2.4000 1.5000-6.7 000 RBC (test code = RBC) 4.2000 3.7000-4.9000 HGB (test code = HGB) 12.5000 g/dL 11.2000-18.0000 HCT (test code = HCT) 37.8000 % 34.0000-44.0000 MCV (test code = MCV) 90.0000 fL 80.0000-94.0000 MCH (test code = MCH) 29.8000 pg 27.0000-34.0000 MCHC (test code = MCHC) 33.1000 g/dL 31.5000-36.0000 RDW (test code = RDW) 14.5000 11.0000-18.0000 PLT (test code = PLT) 252.0000 140.0000-440.0000 MPV (test code = MPV) 7.9000 fL 6.8000-10.6000 [id number] 09:01:00 Test Item Value Reference Range Comments Creatinine (test code = Creatinine) 0.8000 mg/dL 0.5000-1.200 0 Cr Clearance (Est) (test code = Cr 97.2300 75.0000-115.0 000 Clearance (Est)) Glucose (test code = Glucose) 105.0000 mg/dL 70.0000-118.0000 BUN (test code = BUN) 11.0000 mg/dL 7.0000-22.0000 Sodium (test code = Sodium) 139.0000 mmol/L 128.0000-145.0000 Potassium (test code = Potassium) 3.7000 mmol/L 3.6000-5.1000 Chloride (test code = Chloride) 103.0000 mmol/L 96.0000-108.0000 CO2 (test code = CO2) 27.0000 mmol/L 18.0000-33.0000 Calcium (test code = Calcium) 9.1300 mg/dL 8.0000-10.3000 Alkaline Phosphatase (test code = Alkaline 52.0000 42.00 00-141.0000 Phosphatase) ALT (SGPT) (test code = ALT (SGPT)) 32.0000 10.0000-47.0 000 AST (SGOT) (test code = AST (SGOT)) 18.0000 11.0000-37.0 000 Bilirubin, Total (test code = Bilirubin, 0.8000 mg/dL 0.0000- 1.6000 Total) Albumin (test code = Albumin) 4.1000 g/dL 3.5000-5.5000 Protein, Total (test code = Protein, 5.9000 g/dL 6.4000-8.10 00 Total) eGFR -Ukrainian (test code = eGFR 92.0000 60.0000- 200.0000 -Ukrainian) eGFR Unv-Jhhkpdc-Otkbpcqh (test code = 76.0000 60.0000-2 00.0000 eGFR Zsf-Lvqjkuz-Pmemfhmr) [id number] 08:36:00 Test Item Value Reference Range Comments WBC (test code = WBC) 5.2000 4.0000-10.0000 Lymphocytes % (test code = Lymphocytes %) 19.7000 % 22.400 0-43.6000 MID% (test code = MID%) 5.8000 % 1.2000-11.2000 Neutrophils % (test code = Neutrophils %) 74.5000 % 48.900 0-69.9000 Lymphocytes (test code = Lymphocytes) 1.0000 1.2000-3.2 000 MID (test code = MID) 0.3000 0.1000-1.1000 Neutrophils (test code = Neutrophils) 3.9000 1.5000-6.7 000 RBC (test code = RBC) 4.6400 3.7000-4.9000 HGB (test code = HGB) 13.8000 g/dL 11.2000-18.0000 HCT (test code = HCT) 41.2000 % 34.0000-44.0000 MCV (test code = MCV) 88.9000 fL 80.0000-94.0000 MCH (test code = MCH) 29.8000 pg 27.0000-34.0000 MCHC (test code = MCHC) 33.5000 g/dL 31.5000-36.0000 RDW (test code = RDW) 14.9000 11.0000-18.0000 PLT (test code = PLT) 279.0000 140.0000-440.0000 MPV (test code = MPV) 8.0000 fL 6.8000-10.6000 [id number] 08:36:00 Test Item Value Reference Range Comments Creatinine (test code = Creatinine) 0.9000 mg/dL 0.5000-1.200 0 Cr Clearance (Est) (test code = Cr 86.4200 75.0000-115.0 000 Clearance (Est)) Glucose (test code = Glucose) 131.0000 mg/dL 70.0000-118.0000 BUN (test code = BUN) 14.0000 mg/dL 7.0000-22.0000 Sodium (test code = Sodium) 141.0000 mmol/L 128.0000-145.0000 Potassium (test code = Potassium) 3.8000 mmol/L 3.6000-5.1000 Chloride (test code = Chloride) 103.0000 mmol/L 96.0000-108.0000 CO2 (test code = CO2) 28.0000 mmol/L 18.0000-33.0000 Calcium (test code = Calcium) 9.1600 mg/dL 8.0000-10.3000 Alkaline Phosphatase (test code = Alkaline 54.0000 42.00 00-141.0000 Phosphatase) ALT (SGPT) (test code = ALT (SGPT)) 62.0000 10.0000-47.0 000 AST (SGOT) (test code = AST (SGOT)) 28.0000 11.0000-37.0 000 Bilirubin, Total (test code = Bilirubin, 0.9000 mg/dL 0.0000- 1.6000 Total) Albumin (test code = Albumin) 4.3000 g/dL 3.5000-5.5000 Protein, Total (test code = Protein, 6.2000 g/dL 6.4000-8.10 00 Total) eGFR -Ukrainian (test code = eGFR 80.0000 60.0000- 200.0000 -Ukrainian) eGFR Hgf-Zzbdwsc-Vglokvvi (test code = 66.0000 60.0000-2 00.0000 eGFR Ojg-Vjmxngq-Lolfydgz) Encounters Start End Encounter Admission Attending Care Care Encounter Date/Time Date/Time Type Type Clinicians Facility Department ID 2020-08-30 2020-08-30 Outpatient Danica Husain rn [id number] 00:00:00 00:00:00 [facility] Medical Oncology Oncology [facility] 2020-08-19 2020-08-19 Rodrigue Moser [facility] [id number] 00:00:00 00[facility]00[facility]00 [facility] 2020-08-02 2020-08-02 Rodrigue Ordonez [facility] [id number] 00:00[facility]00 [facility] 2020-08-01 2020-08-01 Outpatient Danica Husain rn [id number] 00:00[facility]00 [facility] 2020-07-28 2020-07-28 Outpatient Danica Husain rn [id number] 00:00:00 [facility]00[facility] 2020-07-27 2020-07-27 Danica Husain [id number] 00:00:00 00:00:00 Dr. Daniele buck [facility] Oncology Oncology [facility] 2020-07-26 2020-07-26 Outpatient Danica buck [id number] 00:00:00 00:00:00 [facility] Medical Oncology Oncology [facility] 2020-07-22 2020-07-22 Outpatient Danica buck [id number] 00:00:00 00:00:00 [facility] Medical Oncology Oncology [facility] 2020-07-19 2020-07-19 Outpatient Khloe Husainamelia Leo rn [id number] 00:00:00 00:00:00 [facility] 2020-07-18 2020-07-18 Outpatient VenancioKhloe salcidoamelia Leo rn [id number] 00:00:00 00:00:00 [facility] 2020-07-15 2020-07-15 Outpatient Venancioomari Khloeamelia Leo rn [id number] 00:00:00 00:00:00 [facility] Oncology Oncology [facility] 2020-07-14 2020-07-14 Outpatient Venancioomari Khloeamelia Leo rn [id number] 00:00:00 00:00:00 [facility] Oncology Oncology [facility] 2020-07-13 2020-07-13 Outpatient ChelejoseDanica rn [id number] 00:00:00 00:00:00 [facility] Oncology Oncology [facility] 2020-07-12 2020-07-12 Outpatient ChelejoseDanica rn [id number] 00:00:00 00:00:00 [facility] Oncology Oncology [facility] 2020-07-11 2020-07-11 Outpatient VenancioKhloe salcidoamelia Leo rn [id number] 00:00:00 00:00:00 [facility] Oncology Oncology [facility] 2020-07-08 2020-07-08 Outpatient Chelejose Khloeamelia Leo rn [id number] 00:00:00 00:00:00 [facility] Oncology Oncology [facility] 2020-07-07 2020-07-07 Outpatient ChelejoseDanica rn [id number] 00:00:00 00:00:00 [facility] Oncology Oncology [facility] 2020-07-06 2020-07-06 ОлегChelejoseDanica [facility] [id number] 00:00:00 00:00:00 Loyda [facility] Oncology Oncology [facility] 2020-06-24 2020-06-24 Outpatient Danica Mishra n [id number] 00:00:00 00:00:00 [facility] Oncology Oncology [facility] 2020-06-23 2020-06-23 Outpatient Danica Mishra n [id number] 00:00:00 00:00:00 [facility] Oncology Oncology [facility] 2020-06-22 2020-06-22 JayaramRodrigue [facility] [id number] 00:00:00 00:00:00 Dr. Daniele buck [facility] Medical Oncology [facility] 2020-06-17 2020-06-17 Outpatient Danica Husain rn [id number] 00:00:00 00:00:00 [facility] 2020-06-16 2020-06-16 Outpatient [facility] [id number] 00:00:00 00:00:00 [facility] Medical Oncology [facility] 2020-06-15 2020-06-15 Outpatient [facility] n [id number] 00:00:00 00:00:00 [facility] 2020-06-07 2020-06-07 Outpatient [facility] n [id number] 00:00:00 00:00:00 [facility] On[facility] 2020-06-01 2020-06-01 Outpatient [facility] n [id number] 00:00:00 00:00:00 [facility] On[facility] 2020-05-31 2020-05-31 Rodrigue Denney [facility] [id number] 00:00:00 00:00:00 Loyda Daniele [facility] Medical Oncology [facility] 2020-05-30 2020-05-30 Outpatient [facility] [id number] 00:00:00 00:00:00 [facility] On[facility] 2020-05-29 2020-05-29 Outpatient [facility] n [id number] 00:00:00 00:00:00 [facility] 2020-03-10 2020-03-10 Outpatient [facility] n [id number] 00:00:00 00:00:00 [facility] 2020-02-23 2020-02-23 Outpatient [facility] n [id number] 00:00:00 00:00:00 n [facility] Medical Oncology [facility] 2019-05-01 2019-05-01 Outpatient [facility] n [id number] 00:00:00 00:00:00 [facility] Medical Oncology [facility] 2019-04-29 2019-04-29 Outpatient [facility] n [id number] 00:00:00 00:00:00 [facility] 2019-04-16 2019-04-16 Outpatient [facility] n [id number] 00:00:00 00:00:00 n [facility] Social History Smoking Status Start Date Stop Date Yes - but quit (former) 2020-08-19 00:00:00 2020-08-19 00:00 :00 Social History Observation Description Sex Female Vital Signs Vital Name Observation Time Observation Value Comments BP aguilera 2020-08-02 11:08:40 67.0000 mm[Hg] Bdy height 2020-08-02 11:08:40 62.4000 [in_i] SaO2% BldA PulseOx 2020-08-02 11:08:40 96.0000 % Heart rate 2020-08-02 11:08:40 103.0000 /min Resp rate 2020-08-02 11:08:40 16.0000 /min BP sys 2020-08-02 11:08:40 102.0000 mm[Hg] Body temperature 2020-08-02 11:08:40 97.7000 [degF] Resp rate 2020-07-27 09:50:57 18.0000 /min BP sys 2020-07-27 09:50:57 117.0000 mm[Hg] Body temperature 2020-07-27 09:50:57 97.5000 [degF] Weight 2020-07-27 09:50:57 163.2000 [lb_av] BMI 2020-07-27 09:50:57 29.4700 BP aguilera 2020-07-27 09:50:57 93.0000 mm[Hg] Bdy height 2020-07-27 09:50:57 62.4000 [in_i] SaO2% BldA PulseOx 2020-07-27 09:50:57 95.0000 % Heart rate 2020-07-27 09:50:57 132.0000 /min BMI 2020-07-19 09:47:30 29.5800 BP aguilera 2020-07-19 09:47:30 78.0000 mm[Hg] Bdy height 2020-07-19 09:47:30 62.4000 [in_i] SaO2% BldA PulseOx 2020-07-19 09:47:30 97.0000 % Heart rate 2020-07-19 09:47:30 104.0000 /min Resp rate 2020-07-19 09:47:30 24.0000 /min BP sys 2020-07-19 09:47:30 120.0000 mm[Hg] Body temperature 2020-07-19 09:47:30 97.6000 [degF] Weight 2020-07-19 09:47:30 163.8000 [lb_av] BP aguilera 2020-07-14 12:26:53 92.0000 mm[Hg] Bdy height 2020-07-14 12:26:53 62.4000 [in_i] SaO2% BldA PulseOx 2020-07-14 12:26:53 98.0000 % Heart rate 2020-07-14 12:26:53 98.0000 /min Resp rate 2020-07-14 12:26:53 16.0000 /min BP sys 2020-07-14 12:26:53 115.0000 mm[Hg] Body temperature 2020-07-14 12:26:53 98.0000 [degF] Weight 2020-07-14 12:26:53 159.4000 [lb_av] BMI 2020-07-14 12:26:53 28.7800 BMI 2020-07-11 12:25:09 28.6000 BP aguilera 2020-07-11 12:25:09 84.0000 mm[Hg] Bdy height 2020-07-11 12:25:09 62.4000 [in_i] SaO2% BldA PulseOx 2020-07-11 12:25:09 98.0000 % Heart rate 2020-07-11 12:25:09 122.0000 /min Resp rate 2020-07-11 12:25:09 18.0000 /min BP sys 2020-07-11 12:25:09 124.0000 mm[Hg] Body temperature 2020-07-11 12:25:09 98.0000 [degF] Weight 2020-07-11 12:25:09 158.4000 [lb_av] BMI 2020-07-06 15:12:32 28.1700 BP augilera 2020-07-06 15:12:32 72.0000 mm[Hg] Bdy height 2020-07-06 15:12:32 62.4000 [in_i] SaO2% BldA PulseOx 2020-07-06 15:12:32 99.0000 % Heart rate 2020-07-06 15:12:32 98.0000 /min Resp rate 2020-07-06 15:12:32 16.0000 /min BP sys 2020-07-06 15:12:32 108.0000 mm[Hg] Body temperature 2020-07-06 15:12:32 96.4000 [degF] Weight 2020-07-06 15:12:32 156.0000 [lb_av] BMI 2020-05-31 13:06:24 29.1100 BP aguilera 2020-05-31 13:06:24 90.0000 mm[Hg] Bdy height 2020-05-31 13:06:24 62.4000 [in_i] SaO2% BldA PulseOx 2020-05-31 13:06:24 99.0000 % Heart rate 2020-05-31 13:06:24 91.0000 /min Resp rate 2020-05-31 13:06:24 20.0000 /min BP sys 2020-05-31 13:06:24 133.0000 mm[Hg] Body temperature 2020-05-31 13:06:24 97.8000 [degF] Weight 2020-05-31 13:06:24 161.2000 [lb_av]
== END ==
LOC: RAD 10:17
PROVIDERS: ATTEND Internal Medicine
DX: C79.31 Secondary malignant neoplasm of brain (principal); C50.412 Malignant neoplasm of upper-outer quadrant of left female breast; K76.0 Fatty (change of) liver, not elsewhere classified
CPT/HCPCS: 82565; 78306; 71260; 74177; A9503; Q9969

== ENCOUNTER → 2020-09-01 | Outpatient (CLI) | payer BC ==
--- NOTE | 2020-09-01 15:39 | RADIOLOGY REPORT (SQ) ---
EXAM DESCRIPTION: MRI HEAD COMBO IMAGES COMPLETED DATE/TIME: 09/01/2020 1:56 pm REASON FOR STUDY: (C79.31)SECONDARY MALIGNANT NEOPLASM OF BRAIN C79.31 SECONDARY MALIGNANT NEOPLASM OF BRAIN C50.412 MALIG NEOPLASM OF UPPER-OUTER QUADRANT OF LEFT FEMAL COMPARISON: 05/29/2020 TECHNIQUE: Multiplanar imaging includes noncontrasted T1, T2, FLAIR, diffusion with ADC map and post gadolinium contrast T1 sequences. Images stored on PACS. CONTRAST TYPE AND DOSE: 15 mL Prohance. RENAL FUNCTION: Not indicated. ACR Type II contrast agent associated with few, if any, unconfounded cases of NSF LIMITATIONS: None. FINDINGS: ANATOMY: No anomalies. Normal vascular flow voids. Pituitary fossa normal. CSF SPACES: Normal in size and contour. No hemorrhage. CEREBRUM: Multiple intra-axial enhancing lesions in both cerebral hemispheres many of which are stabl e or decreased in size. No definite new lesions. Associated vasogenic edema slightly more conspicuo us but no significant mass effect. No hemorrhage. POSTERIOR FOSSA: Several metastatic lesions that are either stable or decreased in size. However the lesion in the left cerebellum abutting the tentorium on series 10, image 10 measures 11 x 11 mm and previously measured 9 x 8 mm. DIFFUSION IMAGING: Negative for acute or subacute infarction. ORBITS: No masses. Globes normal. PARANASAL SINUSES: No fluid levels. Mucosa normal. OTHER: No other significant finding. IMPRESSION: Known brain metastasis. Several lesions are stable or decreased in size, however at padmini st 1 lesion in the left cerebellum is slightly larger. No new lesions. EVIDENCE OF ACUTE STROKE: NO. TECHNICAL DOCUMENTATION: JOB ID: [id number] 2010 [employer]- All Rights Reserved Reading location - IP/workstation name: [email or web address]
--- OUTSIDE RECORDS SUMMARY | 2020-09-02 15:30 | XMS REPORT ---
:1970 Author Organization [facility] Address [facility] [address] [place] [address] Care Team Providers Name Role Phone Daniele Husain M.D. Attending Clinician Unavailable Allergies, Adverse Reactions, Alerts This patient has no known allergies or adverse reactions. Medications Ordered Filled Start Stop Current Ordering Indication Dosage Frequency Signature Comments Components Medication Medication Date Date Medication? Clinician (SIG) Name Name Citalopram 2019-1 Yes 1 Hydrobromid 0-07 e 00:00: 00 Ondansetron 2020-0 No 8mg Ondansetro HCl 9-29 n HCl 00:00: 00 Ondansetron 2020-0 No 8mg Ondansetro HCl 9-24 n HCl 00:00: 00 Ondansetron 2020-0 No 8mg Ondansetro HCl 9-21 n HCl 00:00: 00 Morphine 2020-0 Yes 1 Sulfate ER 9 00:00: 00 Hydration 2020-0 2020- No 1000mL 1000mL NS 07-11- 00:00: 00:00 00 :00 Ondansetron 2020-0 2020- No 8mg Ondansetro HCl 9-16 09-29 n HCl 00:00: 00:00 00 :00 Hydration 2020-0 2020- No 500mL 500mL NS -06 07- 00:00: 00:00 00 :00 Zolpidem 2020-0 Yes 1 Tartrate 9 00:00: 00 Ondansetron 2020-0 Yes 1 HCl 8- 00:00: 00 Promethazin 2020-0 Yes 1 e HCl 8- 00:00: 00 ALPRAZolam 2020-0 No 1 8- 00:00: 00 Dexamethaso 2020-0 Yes 1 ne 8- 00:00: 00 Keppra 2020-0 Yes 1 8-11 00:00: 00 oxyCODONE 2020-0 Yes 1 HCl 8- 00:00: 00 ALPRAZolam 2020-0 Yes 1 8-11 00:00: 00 Problems Condition Condition Condition Status Onset Resolution Last Treatin g Comments Name Details Category Date Date Treatment Clinician Date 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 00 Asthenia Asthenia Diagnosis active 2019-10 0-07 00:00: 00 Dehydration Dehydration Diagnosis active 9-16 00:00: 00 Nausea Nausea Diagnosis active 916 00:00: 00 Sarcoma Sarcoma Diagnosis active upper [...] (test code = MPV) 7.9000 fL 6.8000-10.6000 [id number] 09:01:00 Test Item Value Reference Range Comments [...] Protein, 5.9000 g/dL 6.4000-8.10 00 Total) eGFR -Bulgarian (test code = eGFR 92.0000 60.0000- 200.0000 -Bulgarian) eGFR Ihe-Sfnoqhe-Prkvjelc (test code = 76.0000 60.0000-2 00.0000 eGFR Vnv-Jbmdnyd-Rdlfrkex) [id number] 08:36:00 Test Item Value Reference Range Comments [...] (test code = MPV) 8.0000 fL 6.8000-10.6000 [id number] 08:36:00 Test Item Value Reference Range Comments [...] Protein, 6.2000 g/dL 6.4000-8.10 00 Total) eGFR -Bulgarian (test code = eGFR 80.0000 60.0000- 200.0000 -Bulgarian) eGFR Kxu-Lxejote-Xmsehvle (test code = 66.0000 60.0000-2 00.0000 eGFR Pun-Ezwcgih-Pptixvyh) Encounters Start End Encounter Admission Attending Care Care Encounter Date/Time Date/Time Type Type Clinicians Facility Department ID 2020-08-30 2020-08-30 Outpatient Danica Husain rn [id number] 00:00:00 00:00:00 [facility] Medical Oncology Oncology [facility] 2020-08-19 2020-08-19 Rodrigue Moser [facility] [id number] 00:00:00 00:00[facility] 2020-08-02 2020-08-02 Rodrigue Ordonez [facility] [id number] 00:00:00 [facility]00[facility] 2020-08-01 2020-08-01 Outpatient Danica Husain rn [id number] 00:00:00 [facility] 2020-07-28 2020-07-28 Outpatient Danica Husain rn [id number] 00:00:00 00:00:00 [facility] Oncology Oncology [facility] 2020-07-27 2020-07-27 Danica Husain [id number] 00:00:00 00:00:00 Dr. Daniele buck [facility] Medical Oncology Oncology [facility] 2020-07-26 2020-07-26 Outpatient Danica buck [id number] 00:00:00 00:00:00 [facility] Medical Oncology Oncology [facility] 2020-07-22 2020-07-22 Outpatient Danica buck [id number] 00:00:00 00:00:[address] [facility] Oncology Oncology [facility] 2020-07-19 2020-07-19 Outpatient Danica Husain rn [id number] 00:00:00 00:00:00 [facility] On[facility] 2020-07-18 2020-07-18 Outpatient Venancioomari Khloeamelia Leo rn [id number] 00:00:00 00:00:00 [facility] Oncology Oncology [facility] 2020-07-15 2020-07-15 Outpatient Venancioomari Khloeamelia Leo rn [id number] 00:00:00 00:00:00 [facility] Oncology Oncology [facility] 2020-07-14 2020-07-14 Outpatient Chelejose Khloeamelia Leo rn [id number] 00:00:00 00:00:00 [facility] Oncology Oncology [facility] 2020-07-13 2020-07-13 Outpatient ChelejoseDanica rn [id number] 00:00:00 00:00:00 [facility] Oncology Oncology [facility] 2020-07-12 2020-07-12 Outpatient Chelejose Khloeamelia Leo rn [id number] 00:00:00 00:00:00 [facility] Oncology Oncology [facility] 2020-07-11 2020-07-11 Outpatient Venancioomari Khloeamelia Leo rn [id number] 00:00:00 00:00:00 [facility] Oncology Oncology [facility] 2020-07-08 2020-07-08 Outpatient Chelejose Khloeamelia Leo rn [id number] 00:00:00 00:00:00 [facility] Oncology Oncology [facility] 2020-07-07 2020-07-07 Outpatient Venancioomari Khloeamelia Leo rn [id number] 00:00:00 00:00:00 [facility] Oncology Oncology [facility] 2020-07-06 2020-07-06 ОлегChelejoseDanica [facility] [id number] 00:00:00 00:00:00 Loyda [facility] Oncology Oncology [facility] 2020-06-24 2020-06-24 Outpatient Danica Mishra n [id number] 00:00:00 00:00:[address] [facility] Oncology Oncology [facility] 2020-06-23 2020-06-23 Outpatient Danica Mishra n [id number] 00:00:00 00:00:[address] [facility] Oncology Oncology [facility] 2020-06-22 2020-06-22 Rodrigue Husain [facility] [id number] 00:00:00 00:00:00 Dr. Daniele buck [facility] Oncology Oncology [facility] 2020-06-17 2020-06-17 Outpatient Danica Husain rn [id number] 00:00:00 00:00:00 Daniele buck [facility] Oncology Oncology [facility] 2020-06-16 2020-06-16 Outpatient [facility] n [id number] 00:00:00 00:00:[address] [facility] Oncology Oncology [facility] 2020-06-15 2020-06-15 Outpatient [facility] n [id number] 00:00:00 00:00:[address] [facility] Oncology Oncology [facility] 2020-06-07 2020-06-07 Outpatient [facility] n [id number] 00:00:00 00:00:[address] [facility] Oncology Oncology [facility] 2020-06-01 2020-06-01 Outpatient [facility] n [id number] 00:00:00 00:00:[address] [facility] Oncology Oncology [facility] 2020-05-31 2020-05-31 Rodrigue Denney [facility] [id number] 00:00:00 00:00:00 Loyda Sanabria [facility] Oncology Oncology [facility] 2020-05-30 2020-05-30 Outpatient [facility] n [id number] 00:00:00 00:00:[address] [facility] Oncology Oncology [facility] 2020-05-29 2020-05-29 Outpatient [facility] n [id number] 00:00:00 00:00:[address] [facility] Oncology Oncology [facility] 2020-03-10 2020-03-10 Outpatient [facility] n [id number] 00:00:00 00:00:[address] [facility] Oncology Oncology [facility] 2020-02-23 2020-02-23 Outpatient [facility] n [id number] 00:00:00 00:00:[address] [facility] Oncology Oncology [facility] 2019-05-01 2019-05-01 Outpatient [facility] n [id number] 00:00:00 00:00:[address] [facility] Oncology Oncology [facility] 2019-04-29 2019-04-29 Outpatient [facility] n [id number] 00:00:00 00:00:[address] [facility] Oncology Oncology [facility] 2019-04-16 2019-04-16 Outpatient [facility] n [id number] 00:00:00 00:00:00 n Medical Medical Oncology Oncology [...] mm[Hg] Body temperature 2020-08-02 11:08:40 97.7000 [degF] Heart rate 2020-07-27 09:50:57 132.0000 /min Resp rate 2020-07-27 09:50:57 18.0000 /min BP sys 2020-07-27 09:50:57 117.0000 mm[Hg] Body temperature 2020-07-27 09:50:57 97.5000 [degF] Weight 2020-07-27 09:50:57 163.2000 [lb_av] BMI 2020-07-27 09:50:57 29.4700 BP aguilera 2020-07-27 09:50:57 93.0000 mm[Hg] Bdy height 2020-07-27 09:50:57 62.4000 [in_i] SaO2% BldA PulseOx 2020-07-27 09:50:57 95.0000 % BMI 2020-07-19 09:47:30 29.5800 BP aguilera 2020-07-19 [...] 158.4000 [lb_av] BMI 2020-07-06 15:12:32 28.1700 BP aguilera 2020-07-06 15:12:32 72.0000 mm[Hg] Bdy height 2020-07-06 [...]
== END ==
LOC: RAD 12:35
PROVIDERS: ATTEND Internal Medicine
DX: C79.31 Secondary malignant neoplasm of brain (principal); C50.412 Malignant neoplasm of upper-outer quadrant of left female breast
CPT/HCPCS: 70553; A9576

== ENCOUNTER 2020-09-08 15:22 | Emergency (ER) | payer BC ==
--- NOTE | 2020-09-08 16:07 | ER Document Report ---
ED Headache - General Chief Complaint: Headache Stated Complaint: WEAKNESS Primary Care Provider: YAHAIRA NICHOLAS [NO LOCAL MD] - Follow up as needed Mode of Arrival: Medic Information source: Emergency Med Personnel Notes: 11/08/19 15:39 - ED Nursing Note by JOSHUA CASTRO Num: [id number] : 1970 Patient Age: 49 Pt presented to the ED with c/o of head with n/v x4 days, pt has stage 4 brain cancer. Eduarda Castro RN MY NOTES 49-year-old female arrives by EMS with 10 out of 10 headache and photophobia. She was given some nausea medicine by EMS prior to arrival. Her son Maximo advises she takes morphine sulfate twice a day and also oxycodone for breakthrough headaches. 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 He was diagnosed this year with metastasis to brain. She is breast cancer HER-2 positive she is currently 8 out of 10 headache pain. Pt is followed by Dr. Husain. Patient had MRI of brain on 01 September which revealed brain metastasis of several lesions which are stable and 1 left cerebellar lesion which has increased in size to around 1 cm diameter. - HPI Patient complains to provider of: Headache - Related Data Allergies/Adverse Reactions: No Known Allergies Allergy (Verified 05/18/20 16:17) Past Medical History - Social History Smoking Status: Unknown if Ever Smoked Chew tobacco use (# tins/day): No Frequency of alcohol use: None Drug Abuse: None Family History: Reviewed & Not Pertinent Patient has homicidal ideation: No - Past Medical History Cardiac Medical History: Denies: Hx Pulmonary Embolism Endocrine Medical History: Denies: Hx Diabetes Mellitus Type 1, Hx Diabetes Mellitus Type 2 Malignancy Medical History: Reports: Hx Breast Cancer Past Surgical History: Reports: Hx Breast Surgery Review of Systems - Review of Systems Constitutional: See HPI, Malaise, Weakness, Recent illness EENT: No symptoms reported Cardiovascular: No symptoms reported Respiratory: No symptoms reported Gastrointestinal: No symptoms reported Genitourinary: No symptoms reported Female Genitourinary: No symptoms reported Musculoskeletal: No symptoms reported Skin: No symptoms reported Hematologic/Lymphatic: No symptoms reported Neurological/Psychological: See HPI, Weakness, Headaches Physical Exam - Vital signs Vitals: Resp 18 09/08/20 15:33 Interpretation: Normal - General General appearance: Appears well, Alert - HEENT Head: Normocephalic, Atraumatic Eyes: Normal Pupils: PERRL - Respiratory Respiratory status: No respiratory distress Chest status: Nontender Breath sounds: Normal Chest palpation: Normal - Cardiovascular Rhythm: Regular Heart sounds: Normal auscultation Murmur: No - Abdominal Inspection: Normal Distension: No distension Bowel sounds: Normal Tenderness: Nontender Organomegaly: No organomegaly - Back Back: Normal, Nontender - Extremities General upper extremity: Normal inspection, Nontender, Normal color, Normal ROM, Normal temperature General lower extremity: Normal inspection, Nontender, Normal color, Normal ROM, Normal temperature, Normal weight bearing. No: Kaitlynn's sign - Neurological Neuro grossly intact: Yes Cognition: Normal Orientation: AAOx4 Cobb Coma Scale Eye Opening: Spontaneous Isaac Coma Scale Verbal: Oriented Isaac Coma Scale Motor: Obeys Commands Isaac Coma Scale Total: 15 Speech: Normal Motor strength normal: LUE, RUE, LLE, RLE Sensory: Normal - Psychological Associated symptoms: Normal affect, Normal mood - Skin Skin Temperature: Warm Skin Moisture: Dry Skin Color: Normal Course - Vital Signs Vital signs: Temp Pulse Resp BP Pulse Ox 99.2 F 16 101/62 93 09/08/20 20:01 09/08/20 20:01 09/08/20 20:01 09/08/20 20:01 - Laboratory Result Diagrams: 09/08/20 17:10 09/08/20 17:10 Laboratory results interpreted by me: 09/08/20 09/08/20 17:10 17:10 RDW 14.6 H Calcium 8.3 L ALT 45 H Total Protein 5.4 L Albumin 3.2 L Critical Care Note - Critical Care Note Comments: I discussed this case with Dr. Lantigua at 1620 and she advises Decadron IV and also placing the patient on for twice daily and following up in their office. Discharge - Discharge Clinical Impression: Metastasis to brain Headache Qualifiers: Headache type: unspecified Headache chronicity pattern: acute headache Intractability: not intractable Qualified Code(s): R51.9 - Headache, unspecified Condition: Stable Disposition: HOME, SELF-CARE Additional Instructions: Follow-up with Dr. Husain; call tomorrow to office. Take medicines as directed return to ER as needed encourage fluids also take Decadron 4 mg twice a day and Periactin once daily.; If headache continues may try Duragesic patch but try to decrease use of morphine or oxycodone while using this extra transdermal pain medication. May speak with oncologist before use. Prescriptions: Dexamethasone [Decadron 4 Mg Tablet] 4 mg PO BID #10 tablet Fentanyl [Duragesic 25 Mcg/Hr Transdermal Patch] 1 each TD Q3D #2 patch.[id number] Cyproheptadine HCl [Periactin 4 Mg Tablet] 4 mg PO HSP PRN #30 tablet PRN Reason: Referrals: LOCALMD,NO [NO LOCAL MD] - Follow up as needed
[2020-09-08] MEDS ORDERED: FENTANYL CITRATE INJ/PF 100 MCG/2 ML AMPUL IV ONE (16:09)
[2020-09-08] MEDS ORDERED: PROCHLORPERAZINE EDISYLATE INJ 10 MG/2 ML VIAL IV ONE ×2 (16:09→17:38)
[2020-09-08] MEDS ORDERED: DEXAMETHASONE SOD PHOS INJ 10 MG/1 ML VIAL IV ONE (16:09)
[2020-09-08] MEDS ORDERED: FAMOTIDINE INJ/PF 20 MG/2 ML SDV IV ONE (17:37)
[2020-09-08] MEDS ORDERED: HYDROMORPHONE HCL INJ/PF 2 MG/ML AMPULE IV ONE (17:38)
[2020-09-08] MEDS ORDERED: DIPHENHYDRAMINE HCL 50 MG/ML VIAL IV ONE (17:40)
[2020-09-08 17:56] LABS: ABSOLUTE EOSINOPHILS # (AUTO) 0.1 10^3/uL (0.0-0.6); ABSOLUTE LYMPHOCYTES (AUTO) 0.8 10^3/uL (0.5-4.7); ABSOLUTE MONOCYTES (AUTO) 0.5 10^3/uL (0.1-1.4); ABSOLUTE NEUT (AUTO) 2.7 10^3/uL (1.7-8.2); BASOPHILS % (AUTO) 0.6 % (0-2); EOSINOPHILS % (AUTO) 1.4 % (0-6); HEMATOCRIT 37.8 % (36.0-47.0); HEMOGLOBIN 12.8 g/dL (12.0-15.5); MEAN CORPUSCULAR HEMOGLOBIN 31.1 pg (27.0-33.4); MEAN CORPUSCULAR HGB CONC 33.9 g/dL (32.0-36.0); MEAN CORPUSCULAR VOLUME 92 fl (80-97); MONOCYTES % (AUTO) 12.5 % (3-13); PLATELET COUNT 199 10^3/uL (150-450); RED BLOOD COUNT 4.13 10^6/uL (3.72-5.28); RED CELL DISTRIBUTION WIDTH 14.6 % (11.5-14.0); SEGMENTED NEUTROPHILS % (AUTO) 66.5 % (42-78); TOTAL CELLS COUNTED % (AUTO) 100 %; WHITE BLOOD COUNT 4.1 10^3/uL (4.0-10.5)
[2020-09-08 18:09] LABS: ALBUMIN 3.2 g/dL (3.5-5.0); ALKALINE PHOSPHATASE 46 U/L (38-126); ANION GAP 6 (5-19); ASPARTATE AMINO TRANSFERASE 35 U/L (14-36); BILIRUBIN,DIRECT 0.2 mg/dL (0.0-0.4); BLOOD UREA NITROGEN 13 mg/dL (7-20); CALCIUM 8.3 mg/dL (8.4-10.2); CARBON DIOXIDE 26 mmol/L (22-30); CHLORIDE 106 mmol/L (98-107); GLUCOSE 80 mg/dL (75-110); POTASSIUM 3.8 mmol/L (3.6-5.0); TOTAL PROTEIN 5.4 g/dL (6.3-8.2)
[2020-09-08 20:19] LABS: APPEARANCE,URINE SLIGHTLY-CLOUDY; BILIRUBIN,URINE NEGATIVE (NEGATIVE); COLOR,URINE YELLOW; GLUCOSE, URINE NEGATIVE (NEGATIVE); KETONES,URINE 20 mg/dL (NEGATIVE); LEUKOCYTE ESTERASE,URINE NEGATIVE (NEGATIVE); NITRITE,URINE POSITIVE (NEGATIVE); PROTEIN,URINE NEGATIVE (NEGATIVE); URINE SPECIFIC GRAVITY 1.019; UROBILINOGEN,URINE NEGATIVE mg/dL (<2.0)
[2020-09-08 21:13] VITALS: BP 95/63
== END 2020-09-08 22:52 | disposition home or self-care (01) ==
LOC: ER 15:22
DX: C79.31 Secondary malignant neoplasm of brain (principal); R51.9 Headache, unspecified; R11.2 Nausea with vomiting, unspecified; R53.81 Other malaise; R53.1 Weakness; Z85.3 Personal history of malignant neoplasm of breast; Z79.891 Long term (current) use of opiate analgesic
CPT/HCPCS: 99284; 96374; 96375; 36415; 85025; 80053; 81001; J1200; J3010; J1170; J0780; S0028; J1100

== ENCOUNTER 2020-09-15 10:25 | Inpatient (IN) | payer BC ==
[2020-09-15] MEDS ORDERED: NORMAL SALINE 1000 ML 1,000 ML IV ONE (10:34)
[2020-09-15] MEDS ORDERED: ONDANSETRON HCL INJ/PF 4 MG/2 ML SDV IV ONE (10:35)
--- NOTE | 2020-09-15 10:36 | ER Document Report ---
ED Medical Screen (RME) - General Stated Complaint: CHEST PAIN Time Seen by Provider: 09/15/20 10:30 Information source: Patient Notes: Patient presents complaining of midsternal chest pain that woke her up at 2:00 this morning. Patient does report occasional shortness of breath. Patient denies any cough or cold symptoms. Patient does report a history of breast and brain cancer. Patient has had mastectomy and does have a port. I have greeted and performed a rapid initial assessment of this patient. A comprehensive ED assessment and evaluation of the patient, analysis of test results and completion of the medical decision making process will be conducted by additional ED providers. - Related Data Allergies/Adverse Reactions: No Known Allergies Allergy (Verified 05/18/20 16:17) Past Medical History - Past Medical History Cardiac Medical History: Denies: Hx Pulmonary Embolism Endocrine Medical History: Denies: Hx Diabetes Mellitus Type 1, Hx Diabetes Mellitus Type 2 Malignancy Medical History: Reports: Hx Breast Cancer Past Surgical History: Reports: Hx Breast Surgery Physical Exam - Respiratory Chest status: Tender - Cardiovascular Rhythm: Tachycardia Heart sounds: S1 appreciated, S2 appreciated
[2020-09-15 10:59] LABS: ABSOLUTE EOSINOPHILS # (AUTO) 0.1 10^3/uL (0.0-0.6); ABSOLUTE LYMPHOCYTES (AUTO) 0.8 10^3/uL (0.5-4.7); ABSOLUTE NEUT (AUTO) 4.8 10^3/uL (1.7-8.2); BASOPHILS % (AUTO) 0.4 % (0-2); EOSINOPHILS % (AUTO) 1.3 % (0-6); HEMATOCRIT 37.6 % (36.0-47.0); HEMOGLOBIN 12.6 g/dL (12.0-15.5); LYMPHOCYTES % (AUTO) 11.5 % (13-45); MEAN CORPUSCULAR HEMOGLOBIN 30.8 pg (27.0-33.4); MEAN CORPUSCULAR HGB CONC 33.5 g/dL (32.0-36.0); MEAN CORPUSCULAR VOLUME 92 fl (80-97); MONOCYTES % (AUTO) 15.5 % (3-13); PLATELET COUNT 190 10^3/uL (150-450); RED BLOOD COUNT 4.09 10^6/uL (3.72-5.28); RED CELL DISTRIBUTION WIDTH 14.8 % (11.5-14.0); SEGMENTED NEUTROPHILS % (AUTO) 71.3 % (42-78); TOTAL CELLS COUNTED % (AUTO) 100 %; WHITE BLOOD COUNT 6.7 10^3/uL (4.0-10.5)
[2020-09-15] MEDS ORDERED: MORPHINE SULFATE 10 MG/ML INJ IV ONE ×2 (11:04→15:39)
--- NOTE | 2020-09-15 11:23 | RADIOLOGY REPORT (SQ) ---
EXAM DESCRIPTION: CHEST SINGLE VIEW IMAGES COMPLETED DATE/TIME: 09/15/2020 10:46 am REASON FOR STUDY: cp COMPARISON: AP chest 05/18/2020 EXAM PARAMETERS: NUMBER OF VIEWS: One view. TECHNIQUE: Single frontal radiographic view of the chest acquired. RADIATION DOSE: NA LIMITATIONS: Portable technique, rotated toward the RACHELL orientation FINDINGS: LUNGS AND PLEURA: Minimal right basilar bandlike airspace disease likely atelectasis. Bernardo gs otherwise well inflated clear. No pleural effusion. No pneumothorax. MEDIASTINUM AND HILAR STRUCTURES: No masses. Contour normal. HEART AND VASCULAR STRUCTURES: Heart normal in size. Normal vasculature. BONES: No acute findings. HARDWARE: Right-sided permanent central line tip superior vena cava Next OTHER: No other significant finding. IMPRESSION: Minimal right basilar atelectasis TECHNICAL DOCUMENTATION: JOB ID: [id number] 2010 [employer]- All Rights Reserved Reading location - IP/workstation name: [id number]
--- NOTE | 2020-09-15 11:27 | ER Document Report ---
ED General - General Chief Complaint: Chest Pain Stated Complaint: CHEST PAIN Time Seen by Provider: 09/15/20 10:30 - HPI Notes: Patient is a 49-year-old female with a past medical history of metastatic breast cancer to the brain who presents with left-sided lower chest pain. She describes it as sharp and constant. It began yesterday after she had physical therapy and worsened throughout the night. She occasionally has shortness of breath. Pain is not pleuritic. This pain is new. She denies any cough or cold symptoms. No fevers or chills. No nausea or vomiting. She has never had any cardiac issues. She is a non-smoker. Patient last had radiation a couple weeks ago. She states that her oncologist, Dr. Anna, is waiting to continue chemotherapy when she becomes stronger. Never had a PE or DVT. She is not on any blood thinners. - Related Data Allergies/Adverse Reactions: No Known Allergies Allergy (Verified 05/18/20 16:17) Past Medical History - General Information source: Patient - Social History Smoking Status: Never Smoker Chew tobacco use (# tins/day): No Frequency of alcohol use: None Drug Abuse: None Family History: Reviewed & Not Pertinent - Past Medical History Cardiac Medical History: Denies: Hx Pulmonary Embolism Endocrine Medical History: Denies: Hx Diabetes Mellitus Type 1, Hx Diabetes Mellitus Type 2 Malignancy Medical History: Reports: Hx Breast Cancer Past Surgical History: Reports: Hx Breast Surgery Review of Systems - Review of Systems Notes: CONSTITUTIONAL: No fever SKIN: No rash. HENT: No congestion, ear pain, or sore throat. CARDIOVASCULAR: Positive for left-sided chest pain. RESPIRATORY: No cough, shortness of breath, congestion, or wheezing. GASTROINTESTINAL: No abdominal pain, nausea, vomiting, bloody stools or diarrhe a. GENITOURINARY: No dysuria. MUSCULOSKELETAL: No joint pain or swelling. LYMPHATIC: No swollen glands. NEUROLOGIC: No seizures. No headache, focal weakness or sensory changes. HEMATOLOGIC: No unusual bruising or bleeding. PSYCHIATRIC: No depression or anxiety. Physical Exam - Vital signs Vitals: Temp 99.3 F 09/15/20 10:25 - General Notes: VITAL SIGNS: Within normal limits. GENERAL: No acute distress, non-toxic appearance. HEAD: Normal with no signs of head trauma. EYES: EOMI, conjunctiva normal, no discharge. EARS: Hearing grossly intact. NECK: Normal range of motion, no tenderness, supple, no lymphadenopathy, No adenopathy, no JVD. CHEST: Clear breath sounds bilaterally. No wheezes, rales, or rhonchi. Discomfort to palpation of left anterior lower ribs. No rash. CARDIAC: Regular rate and rhythm. S1 and S2, without murmurs, gallops, or rubs. VASCULAR: No Edema. ABDOMEN: Normal and soft with no tenderness, no masses or pulsatile masses. GENITOURINARY: Normal, No tenderness MUSCULOSKELETAL: Good range of motion of all major joints. Extremities without clubbing, cyanosis or edema. NEUROLOGICAL: Alert and oriented x 3. No focal sensory or strength deficits. Speech normal. Follows commands appropriately. PSYCHIATRIC: Normal Affect, judgement and mood. SKIN: Normal appearance with no rashes or lesions. Course - Re-evaluation Re-evalutation: 09/15/20 14:13 Heart Score: 3 Patient continues to have significant left-sided anterior rib pain. She has received multiple doses of IV narcotics as well as a dose of Toradol. Her CTA returned showing bilateral pulmonary emboli. I discussed with Dr. Reyes who agreed with starting her on a heparin bolus and drip and bring her in the hospital to get her pain under control. She requested that she have incentive spirometry while in the hospital. She also requested that oncology be consulted. I discussed all results with the patient. She is agreeable to the plan. I answered all of her questions. I will discuss with the hospitalist for admission. 09/15/20 18:37 - Vital Signs Vital signs: Temp Pulse Resp BP Pulse Ox 97.9 F 78 16 96/43 L 94 09/15/20 16:38 09/15/20 16:38 09/15/20 16:38 09/15/20 16:38 09/15/20 16:38 - Laboratory Result Diagrams: 09/15/20 10:31 09/15/20 11:45 Laboratory results interpreted by me: 09/15/20 09/15/20 09/15/20 10:31 11:45 14:25 RDW 14.8 H Lymph % (Auto) 11.5 L [place] % (Auto) 15.5 H Sodium 134.1 L Calcium 7.9 L Total Bilirubin 1.9 H Total Protein 5.4 L Albumin 3.0 L Urine Ketones 20 H Urine Urobilinogen 2.0 H Ur Leukocyte Esterase MODERATE H - Diagnostic Test Radiology reviewed: Image reviewed, Reports reviewed - EKG Interpretation by Me EKG shows normal: Sinus rhythm Rate: Tachycardia Rhythm: NSR When compared to previous EKG there are: Changes noted Additional EKG results interpreted by me: 09/15/20 11:27 Sinus tachycardia at a rate of 117. Inverted T waves in the anterior lateral leads. Critical Care Note - Critical Care Note Total time excluding time spent on procedures (mins): 35 Comments: Upon my evaluation, this patient had a high probability of imminent or life-thre atening deterioration due bilateral pulmonary emboli, which required my direct attention, intervention, and personal management. I have personally provided 35 minutes of critical care time exclusive of time spent on separately billable procedures. Time includes review of laboratory data, radiology results, discussion with consultants, and monitoring for potential decompensation. Interventions were performed as documented above. Discharge - Discharge Clinical Impression: Bilateral pulmonary embolism Chest pain Qualifiers: Chest pain type: pleurodynia Qualified Code(s): R07.81 - Pleurodynia Condition: Stable Disposition: ADMITTED INPATIENT Admitting Provider: Ever (Hospitalist) Unit Admitted: Medical Floor
[2020-09-15] MEDS ORDERED: HYDROMORPHONE HCL INJ/PF 2 MG/ML AMPULE IV ONE ×2 (11:52→14:03)
[2020-09-15 12:31] LABS: ALKALINE PHOSPHATASE 41 U/L (38-126); ANION GAP 5 (5-19); ASPARTATE AMINO TRANSFERASE 28 U/L (14-36); BILIRUBIN,DIRECT 0.2 mg/dL (0.0-0.4); BILIRUBIN,TOTAL 1.9 mg/dL (0.2-1.3); BLOOD UREA NITROGEN 11 mg/dL (7-20); CALCIUM 7.9 mg/dL (8.4-10.2); CARBON DIOXIDE 24 mmol/L (22-30); CHLORIDE 105 mmol/L (98-107); GLUCOSE 110 mg/dL (75-110); POTASSIUM 3.9 mmol/L (3.6-5.0); TOTAL PROTEIN 5.4 g/dL (6.3-8.2)
[2020-09-15] MEDS ORDERED: KETOROLAC TROMETHAMINE INJ/PF 30 MG/1 ML SDV IV ONE (13:38)
--- NOTE | 2020-09-15 14:02 | RADIOLOGY REPORT (SQ) ---
EXAM DESCRIPTION: CT ABD/PELVIS WITH IV ONLY; CTA CHEST IMAGES COMPLETED DATE/TIME: 09/15/2020 12:34 pm REASON FOR STUDY: LUQ abdominal pain; left anterior rib pain, has cancer, rule out PE. Metastatic b reast cancer. COMPARISON: CT chest, abdomen and pelvis, 08/31/2020. CT chest, abdomen and pelvis 06/08/2020. CONTRAST TYPE AND DOSE: contrast/concentration: Isovue 350.00 mmol/ml; Total Contrast Delivered: 77. 0 ml; Total Saline Delivered: 69.9 ml RENAL FUNCTION: GFR > 60. TECHNIQUE: CT scan of the chest performed using helical scanning technique with dynamic intravenous contrast injection. Images reviewed with lung, soft tissue and bone windows. Reconstructed coronal a nd sagittal MPR images reviewed. All images stored on PACS. CT scan of the abdomen and pelvis performed with intravenous and oral contrast using helical scanning technique with dynamic intravenous contrast injection. Images reviewed with lung, soft tissue and b one windows. Reconstructed coronal and sagittal MPR images reviewed. Delayed images for evaluation of the urinary system also acquired and evaluated. All images stored on PACS. All CT scanners at this facility use dose modulation, iterative reconstruction, and/or weight based d osing when appropriate to reduce radiation dose to as low as reasonably achievable (ALARA). [facility]: Dose Right [facility]: CareDose [facility]: Dose Right [facility]: Teradose 4D [facility]: [employer] RADIATION DOSE: CT Rad equipment meets quality standard of care and radiation dose reduction techniq ues were employed. CTDIvol: 9.9 - 23.2 mGy. DLP: 3244 mGy-cm. . LIMITATIONS: None. FINDINGS: CHEST: AXILLAE: No adenopathy. CHEST WALL: Postoperative changes in the left chest wall are stable. No chest wall mass. LUNGS: Trachea has normal caliber and appearance. No bronchial wall thickening or bronchiectasis. T here is wedge-shaped consolidation in the right lower lobe. Small left pleural effusion with july sive atelectasis of the left lung base. No significant ground-glass attenuation or consolidation. PLEURA: Trace left effusion. No pneumothorax. THYROID: No masses or significant asymmetry. HILAR AND MEDIASTINAL STRUCTURES: No identified masses or abnormal nodes. AORTA AND GREAT VESSELS: No aneurysm. No dissection. PULMONARY ARTERIES: There are pulmonary emboli in the right lower lobe segmental pulmonary arteries a nd left lower lobe segmental pulmonary arteries. Pulmonary emboli also seen in the left upper lobe s egmental and subsegmental pulmonary arteries. HEART: The heart has normal size. Normal RV/LV ratio. Trace pericardial effusion. HARDWARE AND LIFELINES: Right MediPort catheter with tip at the cavoatrial junction unchanged. BONES: No significant finding. OTHER: No other significant finding. ABDOMEN AND PELVIS: LIVER: The liver has normal size and contour. Mild diffuse hepatic steatosis. No focal hepatic mass . Hepatic and portal veins are patent. No biliary ductal dilation. SPLEEN: Normal size. No focal lesions. PANCREAS: No masses. No significant calcifications. No adjacent inflammation or peripancreatic flui d collections. Pancreatic duct not dilated. GALLBLADDER: No identified stones by CT criteria. No inflammatory changes to suggest cholecystitis. ADRENAL GLANDS: No significant masses or asymmetry. RIGHT KIDNEY AND URETER: No solid masses. No significant calcifications. No hydronephrosis or hyd roureter. LEFT KIDNEY AND URETER: No solid masses. No significant calcifications. No hydronephrosis or hydr oureter. AORTA AND VESSELS: No aneurysm. No dissection. Renal arteries, SMA, celiac without stenosis. RETROPERITONEUM: No retroperitoneal adenopathy, hemorrhage or masses. LARGE AND SMALL BOWEL: No dilatation. No masses. No wall thickening. APPENDIX: Normal. ABDOMINAL WALL: No hernia or masses. PERITONEAL CAVITY: No free air. No free fluid. No peritoneal implants or masses. PELVIS: Post hysterectomy. No adnexal mass. Urinary bladder has normal contour. Calcified pelvic p hleboliths. No pelvic adenopathy or free fluid. BONES: No suspicious bone lesions. OTHER: No other significant finding. IMPRESSION: 1. Bilateral segmental and subsegmental pulmonary emboli. Atelectasis versus pulmonary infarct right lower lobe. No evidence of right heart strain. 2. New trace left pleural effusion. 3. Mild hepatic steatosis. 4. No acute abnormality in the abdomen or pelvis. COMMENT: Findings discussed with Dr. Sanders on 09/15/2020 at 1354 hours Eastern time TECHNICAL DOCUMENTATION: JOB ID: [id number] Quality ID # [id number]: Final reports with documentation of one or more dose reduction techniques (e.g., Au tomated exposure control, adjustment of the mA and/or kV according to patient size, use of iterative reconstruction technique) 2010 [employer]- All Rights Reserved Reading location - IP/workstation name: [id number]
[2020-09-15] MEDS ORDERED: HEPARIN SODIUM,PORCINE/D5W 25,000 UNIT/250 ML RTUINJ IV PRN ×2 (14:11→16:27)
[2020-09-15] MEDS ORDERED: HEPARIN SOD (PORCINE) 1,000 UNIT/ML 10 ML VIAL IV ONE ×2 (14:11→16:27)
--- NOTE | 2020-09-15 14:30 | EKG REPORT ---
SEVERITY:- ABNORMAL ECG - SINUS TACHYCARDIA ABNORMAL T, CONSIDER ISCHEMIA, DIFFUSE LEADS,NEW SINCE 05/18/20 EKG : Confirmed by: Anderson Flores MD 15-Sep-2020 14:29:40
[2020-09-15 14:38] LABS: APPEARANCE,URINE CLEAR; BILIRUBIN,URINE NEGATIVE (NEGATIVE); COLOR,URINE YELLOW; GLUCOSE, URINE NEGATIVE (NEGATIVE); KETONES,URINE 20 mg/dL (NEGATIVE); LEUKOCYTE ESTERASE,URINE MODERATE (NEGATIVE); NITRITE,URINE NEGATIVE (NEGATIVE); PROTEIN,URINE NEGATIVE (NEGATIVE)
[2020-09-15 14:50] LABS: URINE SPECIFIC GRAVITY > 1.060
[2020-09-15 15:02] LABS: INTERNATIONAL RATION (INR) 1.15; PROTHROMBIN TIME 14.9 SEC (11.4-15.4)
[2020-09-15 15:03] LABS: PARTIAL THROMBOPLASTIN TIME 28.1 SEC (23.5-35.8)
[2020-09-15] MEDS ORDERED: ACETAMINOPHEN 325 MG TABLET PO PRN (16:14)
[2020-09-15] MEDS ORDERED: MAGNESIUM HYDROXIDE SUSP 30 ML UDCUP PO PRN (16:14)
[2020-09-15] MEDS ORDERED: MAG HYDROX/AL HYDROX/SIMETH SUSP 30 ML UDCUP PO PRN (16:14)
[2020-09-15] MEDS ORDERED: TEMAZEPAM 15 MG CAPSULE PO PRN (16:14)
[2020-09-15] MEDS ORDERED: HEPARIN SOD (PORCINE) 1,000 UNIT/ML 10 ML VIAL IV PRN (17:12)
--- NOTE | 2020-09-15 17:14 | PDOC H&P ---
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 There are multiple emboli on recent studies. The latest imaging shows that they are the same size if not smaller with the exception of 1 lesion. The patient states that she was working with physical therapy yesterday. Her daughter noticed that her hand was "blue ". She can remember if it felt cold or not. They were just finished showering her at the time. She began to notice some chest discomfort. Today she had a significant increase in the discomfort as well as shortness of breath. The discomfort in fact goes down to the right upper quadrant of the abdomen and is bilateral in the chest. Her oxygen saturation is above 90% on room air. CT angiogram shows right and left lower lobe segmental and subsegmental emboli. There is an area of possible infarction in the right lower lobe. The left upper lobe also has segmental and subsegmental emboli. Dr. Magnus Day discussed the patient with Dr. Lantigua and the patient will be admitted to the hospitalist service with Dr. Lantigua consulting. Dr. Lantigua has requested heparin infusion as well. Past Medical History Cardiac Medical History: Denies: Congestive Heart Failure, Coronary Artery Disease, Myocardial Infarction, Pulmonary Embolism Pulmonary Medical History: Denies: Asthma, Chronic Obstructive Pulmonary Disease (COPD), Respiratory Failure Neurological Medical History: Reports: Other - Brain metastases Denies: Hemorrhagic CVA, Ischemic CVA Endocrine Medical History: Denies: Diabetes Mellitus Type 1, Diabetes Mellitus Type 2 Malignancy Medical History: Reports: Breast Cancer, Other - Brain metastases GI Medical History: Denies: Gastroesophageal Reflux Disease, Hepatitis, Peptic Ulcer Disease Skin Medical History: Denies: Eczema, Psoriasis Psychiatric Medical History: Denies: Alcohol Dependency, Dementia, Depression, Substance Abuse Traumatic Medical History: Reports: None Hematology: Denies: Anemia, Heparin Induced Thrombocytopenia Infectious Medical History: Reports: None Past Surgical History Past Surgical History: Reports: Section - X3, Hysterectomy Social History Information Source: Patient, Relative - and daughter Lives with: Family Smoking Status: Never Smoker Electronic Cigarette use?: No Frequency of Alcohol Use: None Hx Recreational Drug Use: No Hx Prescription Drug Abuse: No - Advance Directive Resuscitation Status: Do Not Resuscitate Surrogate healthcare decision maker:: The patient was quite clear with regard to her wishes. The would be the next in line to make decisions. When the patient is more comfortable I will further investigate whether or not she has a living will or healthcare proxy. Family History Family History: Reviewed & Not Pertinent Parental Family History Reviewed: Yes Children Family History Reviewed: Yes Sibling(s) Family History Reviewed.: Yes Medication/Allergy Home Medications: Citalopram Hydrobromide [Citalopram HBr] 20 mg PO DAILY 09/15/20 Hydroxyzine Pamoate [Vistaril 50 mg Capsule] 50 mg PO QHS 09/15/20 Levetiracetam 1,000 mg PO BID 09/15/20 Lorazepam [Ativan 0.5 mg Tablet] 1 mg PO Q8HP PRN 09/15/20 Morphine Sulfate [Ms-Contin Sr 15 mg Tablet] 15 mg PO Q12 09/15/20 Oxycodone HCl [Oxy-Ir 5 mg Tablet] 10 mg PO Q4HP PRN 09/15/20 Promethazine HCl [Phenergan 25 mg Tablet] 25 mg PO Q6HP PRN 09/15/20 Allergies/Adverse Reactions: No Known Allergies Allergy (Verified 05/18/20 16:17) Review of Systems All systems: reviewed and no additional remarkable complaints except as stated Constitutional: PRESENT: anorexia Nose, Mouth, and Throat: PRESENT: other - Very dry mouth Cardiovascular: PRESENT: chest pain - With movement or deep breaths, dyspnea on exertion Respiratory: PRESENT: dyspnea Gastrointestinal: PRESENT: abdominal pain - Right upper quadrant, constipation Psychiatric: PRESENT: anxiety, depression Physical Exam Vital Signs: Temp Pulse Resp BP Pulse Ox 99.3 F 13 110/62 94 09/15/20 10:25 09/15/20 15:01 09/15/20 15:01 09/15/20 15:01 Intake & Output 09/14/20 09/15/20 09/16/20 06:59 06:59 06:59 Intake Total 1000 Balance 1000 Weight 68.4 kg General appearance: PRESENT: cooperative, severe distress - Moderate to severe distress, well-developed Head exam: PRESENT: atraumatic, normocephalic Eye exam: PRESENT: conjunctiva pink, EOMI. ABSENT: scleral icterus Ear exam: PRESENT: normal external ear exam. ABSENT: bleeding, drainage Mouth exam: PRESENT: dry mucosa, tongue midline Respiratory exam: PRESENT: clear to auscultation raphael, symmetrical, tachypnea, other - Limited inspiration due to pain. ABSENT: accessory muscle use, rales, rhonchi, wheezes Cardiovascular exam: PRESENT: RRR, +S1, +S2. ABSENT: bradycardia, diastolic murmur, irregular rhythm, systolic murmur, tachycardia GI/Abdominal exam: PRESENT: hypoactive bowel sounds, soft, tenderness - Right upper quadrant Rectal exam: PRESENT: deferred Gentrourinary exam: ABSENT: indwelling catheter Extremities exam: ABSENT: pedal edema Musculoskeletal exam: PRESENT: ambulatory, normal inspection. ABSENT: deformity, dislocation Neurological exam: PRESENT: alert, awake, oriented to person, oriented to place, oriented to time, oriented to situation, CN II-XII grossly intact. ABSENT: altered Psychiatric exam: PRESENT: appropriate affect - Affect reflects her discomfort. ABSENT: agitated, anxious Focused psych exam: ABSENT: delusional, paranoid, restlessness Skin exam: PRESENT: dry, normal color, warm. ABSENT: rash Results Laboratory Results: 09/15/20 10:31 09/15/20 11:45 09/15/20 09/15/20 09/15/20 10:31 10:31 11:45 WBC 6.7 RBC 4.09 Hgb 12.6 Hct 37.6 MCV 92 MCH 30.8 MCHC 33.5 RDW 14.8 H Plt Count 190 Seg Neutrophils % 71.3 Sodium Cancelled 134.1 L Potassium Cancelled 3.9 Chloride Cancelled 105 Carbon Dioxide Cancelled 24 Anion Gap Cancelled 5 BUN Cancelled 11 Creatinine Cancelled 0.58 Est GFR ( Amer) Cancelled > 60 Est GFR (Non-Af Amer) Cancelled Glucose Cancelled 110 Calcium Cancelled 7.9 L Magnesium Cancelled 1.7 Total Bilirubin Cancelled 1.9 H AST Cancelled 28 Alkaline Phosphatase Cancelled 41 Total Protein Cancelled 5.4 L Albumin Cancelled 3.0 L Urine Color Urine Appearance Urine pH Ur Specific [place] Urine Protein Urine Glucose (UA) Urine Ketones Urine Blood Urine Nitrite Ur Leukocyte Esterase Urine WBC (Auto) Urine RBC (Auto) 09/15/20 14:25 WBC RBC Hgb Hct MCV MCH MCHC RDW Plt Count Seg Neutrophils % Sodium Potassium Chloride Carbon Dioxide Anion Gap BUN Creatinine Est GFR ( Amer) Est GFR (Non-Af Amer) Glucose Calcium Magnesium Total Bilirubin AST Alkaline Phosphatase Total Protein Albumin Urine Color YELLOW Urine Appearance CLEAR Urine pH 5.0 Ur Specific [place] > 1.060 Urine Protein NEGATIVE Urine Glucose (UA) NEGATIVE Urine Ketones 20 H Urine Blood NEGATIVE Urine Nitrite NEGATIVE Ur Leukocyte Esterase MODERATE H Urine WBC (Auto) 18 Urine RBC (Auto) 10 09/15/20 09/15/20 10:31 11:45 Troponin I Cancelled < 0.012 Impressions: Chest X-Ray 09/15/20 10:34 IMPRESSION: Minimal right basilar atelectasis Chest/Abdomen CTA 09/15/20 11:53 IMPRESSION: 1. Bilateral segmental and subsegmental pulmonary emboli. Atelectasis versus pulmonary infarct right lower lobe. No evidence of right heart strain. 2. New trace left pleural effusion. 3. Mild hepatic steatosis. 4. No acute abnormality in the abdomen or pelvis. Abdomen/Pelvis CT 09/15/20 12:03 IMPRESSION: 1. Bilateral segmental and subsegmental pulmonary emboli. Atelectasis versus pulmonary infarct right lower lobe. No evidence of right heart strain. 2. New trace left pleural effusion. 3. Mild hepatic steatosis. 4. No acute abnormality in the abdomen or pelvis. Assessment and Plan - Diagnosis (1) Bilateral pulmonary embolism Is this a current diagnosis for this admission?: Yes (2) Chest pain Qualifiers: Chest pain type: pleurodynia Qualified Code(s): R07.81 - Pleurodynia Is this a current diagnosis for this admission?: Yes (3) Pain of metastatic malignancy Is this a current diagnosis for this admission?: Yes (4) Metastasis to brain Is this a current diagnosis for this admission?: Yes (5) Abnormal urinalysis Is this a current diagnosis for this admission?: Yes - Plan Summary Summary: (1) Bilateral pulmonary embolism (2) Chest pain (3) Pain of metastatic malignancy (4) Metastasis to brain (5) Abnormal urinalysis 09/15/2020 The patient is clearly having significant pain. Heparin infusion will be started. This will be administered per the protocol. There is significant discomfort. Some of this is going to be due to the area in the right lower lobe that is suspicious for atelectasis versus infarct. We will continue her MS Contin 15 mg twice a day that she uses for chronic pain. Instea d of OxyContin we will use Dilaudid for breakthrough pain. For the cancer antiemetics will be available. She does suffer from constipation and I may start her on lubiprostone as an inpatient or suggest Linzess for opioid-induced constipation. I believe the plan is for her to get stronger before starting chemotherapy. I will defer to oncology for management of her malignancy. The urinalysis was suggestive of infection. A culture is pending. I will hold antibiotics until there is a positive culture result or there seems to be a high clinical suspicion of infection. - Time Time Spent with patient: 35 or more minutes Medications reviewed and adjusted accordingly: Yes Anticipated Discharge Disposition: Home with Home Health Anticipated Discharge Timeframe: within 72 hours - Inpatient Certification Based on my medical assessment, after consideration of the patient's comorbidities, presenting symptoms, or acuity I expect that the services needed warrant INPATIENT care.: Yes I certify that my determination is in accordance with my understanding of Medicare's requirements for reasonable and necessary INPATIENT services [42 CFR 412.3e].: Yes Medical Necessity: Significant Comorbidiites Make Outpatient Treatment Too Risky, Need Close Monitoring Due to Risk of Patient Decompensation, Need For IV Fluids, Need for Pain Control Post Hospital Care: D/C or Transfer Summary
[2020-09-15] MEDS: HYDROMORPHONE HCL INJ/PF 2 MG/ML AMPULE IV PRN ×2 (18:03→23:35)
[2020-09-15] MEDS: LEVETIRACETAM 500 MG TABLET PO SCH (18:03)
[2020-09-15] MEDS: DOCUSATE SODIUM 100 MG CAPSULE PO SCH (18:03)
[2020-09-15] MEDS: MORPHINE SULFATE SR 15 MG TABLET PO SCH (21:08)
[2020-09-15] MEDS: HYDROXYZINE PAMOATE 50 MG CAPSULE PO SCH (21:08)
[2020-09-15] MEDS: FAMOTIDINE 20 MG TABLET PO SCH (21:08)
[2020-09-16] MEDS ORDERED: HYDROMORPHONE HCL INJ/PF 2 MG/ML AMPULE IV ONE (02:45)
[2020-09-16] MEDS: HYDROMORPHONE HCL INJ/PF 2 MG/ML AMPULE IV PRN ×5 (04:35→21:55)
[2020-09-16 06:10] LABS: HEMATOCRIT 33.6 % (36.0-47.0); HEMOGLOBIN 11.6 g/dL (12.0-15.5); MEAN CORPUSCULAR HEMOGLOBIN 31.2 pg (27.0-33.4); MEAN CORPUSCULAR HGB CONC 34.5 g/dL (32.0-36.0); MEAN CORPUSCULAR VOLUME 91 fl (80-97); PLATELET COUNT 173 10^3/uL (150-450); RED BLOOD COUNT 3.71 10^6/uL (3.72-5.28); RED CELL DISTRIBUTION WIDTH 14.7 % (11.5-14.0); WHITE BLOOD COUNT 4.9 10^3/uL (4.0-10.5)
[2020-09-16 07:02] LABS: APPEARANCE,URINE SLIGHTLY-CLOUDY; BILIRUBIN,URINE NEGATIVE (NEGATIVE); CALCIUM OXALATE CRYSTALS,URINE RARE /HPF; GLUCOSE, URINE NEGATIVE (NEGATIVE); KETONES,URINE 20 mg/dL (NEGATIVE); LEUKOCYTE ESTERASE,URINE TRACE (NEGATIVE); NITRITE,URINE POSITIVE (NEGATIVE); PROTEIN,URINE 30 mg/dL (NEGATIVE); URINE SPECIFIC GRAVITY 1.031
[2020-09-16 07:04] LABS: COLOR,URINE YELLOW
[2020-09-16] MEDS: MORPHINE SULFATE SR 15 MG TABLET PO SCH (09:24)
[2020-09-16] MEDS: LEVETIRACETAM 500 MG TABLET PO SCH ×2 (09:27→17:10)
[2020-09-16] MEDS: DOCUSATE SODIUM 100 MG CAPSULE PO SCH ×2 (09:28→17:10)
[2020-09-16] MEDS: CITALOPRAM HYDROBROMIDE 20 MG TABLET PO SCH (09:28)
[2020-09-16] MEDS: MAGNESIUM OXIDE 400 MG TABLET PO SCH (09:28)
[2020-09-16] MEDS: FAMOTIDINE 20 MG TABLET PO SCH ×2 (09:28→21:47)
[2020-09-16] MEDS: CEFTRIAXONE 2 GM/D5W RTU 2 GM/50 ML RTUPB IV SCH (09:30)
[2020-09-16] MEDS ORDERED: HYDROMORPHONE HCL INJ/PF 2 MG/ML AMPULE IV PRN (11:53)
--- NOTE | 2020-09-16 12:02 | PDOC PROGRESS REPORT ---
Subjective Reason For Visit: BILATERAL PULMONARY EMBOLI,CHEST PAIN SECONDARY TO Physical Exam Vital Signs: Temp Pulse Resp BP Pulse Ox 98 F 89 16 103/51 L 98 09/16/20 02:15 09/16/20 02:15 09/15/20 23:56 09/16/20 02:15 09/16/20 05:50 Intake & Output 09/15/20 09/16/20 09/17/20 06:59 06:59 06:59 Intake Total 1325 62 Balance 1325 62 Weight 70.8 kg Results Laboratory Results: 09/16/20 05:45 09/15/20 11:45 09/15/20 09/15/20 09/16/20 11:45 14:25 05:45 WBC 4.9 RBC 3.71 L Hgb 11.6 L Hct 33.6 L MCV 91 MCH 31.2 MCHC 34.5 RDW 14.7 H Plt Count 173 Sodium 134.1 L Potassium 3.9 Chloride 105 Carbon Dioxide 24 Anion Gap 5 BUN 11 Creatinine 0.58 Est GFR ( Amer) > 60 Glucose 110 Calcium 7.9 L Magnesium 1.7 Total Bilirubin 1.9 H AST 28 Alkaline Phosphatase 41 Total Protein 5.4 L Albumin 3.0 L Urine Color YELLOW Urine Appearance CLEAR Urine pH 5.0 Ur Specific [place] > 1.060 Urine Protein NEGATIVE Urine Glucose (UA) NEGATIVE Urine Ketones 20 H Urine Blood NEGATIVE Urine Nitrite NEGATIVE Ur Leukocyte Esterase MODERATE H Urine WBC (Auto) 18 Urine RBC (Auto) 10 09/16/20 06:33 WBC RBC Hgb Hct MCV MCH MCHC RDW Plt Count Sodium Potassium Chloride Carbon Dioxide Anion Gap BUN Creatinine Est GFR ( Amer) Glucose Calcium Magnesium Total Bilirubin AST Alkaline Phosphatase Total Protein Albumin Urine Color YELLOW Urine Appearance SLIGHTLY-CLOUDY Urine pH 5.0 Ur Specific [place] 1.031 Urine Protein 30 H Urine Glucose (UA) NEGATIVE Urine Ketones 20 H Urine Blood NEGATIVE Urine Nitrite POSITIVE H Ur Leukocyte Esterase TRACE H Urine WBC (Auto) 7 Urine RBC (Auto) 1 09/15/20 09/15/20 10:31 11:45 Troponin I Cancelled < 0.012 Impressions: Chest X-Ray 09/15/20 10:34 IMPRESSION: Minimal right basilar atelectasis Chest/Abdomen CTA 09/15/20 11:53 IMPRESSION: 1. Bilateral segmental and subsegmental pulmonary emboli. Atelectasis versus pulmonary infarct right lower lobe. No evidence of right heart strain. 2. New trace left pleural effusion. 3. Mild hepatic steatosis. 4. No acute abnormality in the abdomen or pelvis. Abdomen/Pelvis CT 09/15/20 12:03 IMPRESSION: 1. Bilateral segmental and subsegmental pulmonary emboli. Atelectasis versus pulmonary infarct right lower lobe. No evidence of right heart strain. 2. New trace left pleural effusion. 3. Mild hepatic steatosis. 4. No acute abnormality in the abdomen or pelvis. 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 Heparin infusion will be star tom. This will be administered per the protocol. There is significant discomfort. Some of this is going to be due to the area in the right lower lobe that is suspicious for atelectasis versus infarct. We will continue her MS Contin 15 mg twice a day that she uses for chronic pain. Instead of OxyContin we will use Dilaudid for breakthrough pain. For the cancer antiemetics will be available. She does suffer from constipation and I may start her on lubiprostone as an inpatient or suggest Linzess for opioid-induced constipation. I believe the plan is for her to get stronger before starting chemotherapy. I will defer to oncology for management of her malignancy. The urinalysis was suggestive of infection. A culture is pending. I will hold antibiotics until there is a positive culture result or there seems to be a high clinical suspicion of infection. 09/16/2020 Bilateral pulmonary emboli-we will discontinue the heparin infusion in favor of Lovenox. This will cause the patient fewer phlebotomies/needlesticks which are very uncomfortable for her. We will then need to decide on outpatient oral therapy. I have initiated lubiprostone for opiate-induced constipation. We will start at 24 mcg daily. Pain-the 1 mg of Dilaudid every 4 hours is not holding. I will increase this to 1.5 mg. In addition we discussed changing the MS Contin. For tomorrow we will start 30 mg in the morning and 15 at night with eventual progression to 30 mg twice daily. The patient states that she was on Ambien for sleep but suffered adverse effects. She told me that she does tolerate the alprazolam. We will initiate a trial of temazepam at bedtime and see if this helps. Hyperbilirubinemia-bilirubin was 1.9. Will recheck tomorrow. Hyponatremia-sodium is 134. Will recheck tomorrow. Had a long discussion with the patient at the bedside. She is worried about her family and how they are handling her current illness. They thought the metastases were resolved however it was startling news when they were told that they had recurred. She just had a PET scan on August 31 and there was no uptake in the cerebrum. When she gets stronger there is evidently plan for additional treatment. She is frustrated with the degree of pain that she is having. - Time Time Spent with patient: 25-34 minutes - And more than half of this time was spent discussing emotional and psychological issues involved in her ongoing struggle with cancer as it relates to her family as well as herself. Medications reviewed and adjusted accordingly: Yes Anticipated Discharge Disposition: Home with Home Health - The patient was enrolled in home health prior to this admission. Will need to resume home health. Anticipated Discharge Timeframe: Unknown
[2020-09-16] MEDS ORDERED: LUBIPROSTONE 24 MCG CAPSULE PO ONE (12:30)
[2020-09-16] MEDS: PROMETHAZINE HCL INJ 25 MG/1 ML VIAL IV PRN ×3 (13:14→21:55)
[2020-09-16 17:32] LABS: APPEARANCE,URINE CLEAR; BILIRUBIN,URINE NEGATIVE (NEGATIVE); GLUCOSE, URINE NEGATIVE (NEGATIVE); KETONES,URINE 80 mg/dL (NEGATIVE); LEUKOCYTE ESTERASE,URINE TRACE (NEGATIVE); NITRITE,URINE POSITIVE (NEGATIVE); PROTEIN,URINE NEGATIVE (NEGATIVE); URINE SPECIFIC GRAVITY 1.017
[2020-09-16 17:37] LABS: COLOR,URINE DARK YELLOW
[2020-09-16] MEDS: HYDROXYZINE PAMOATE 50 MG CAPSULE PO SCH (21:48)
[2020-09-16] MEDS: TEMAZEPAM 7.5 MG CAPSULE PO SCH (21:48)
[2020-09-16] MEDS: ENOXAPARIN SODIUM INJ 80 MG/0.8 ML DISP.SYRIN SUBCUT SCH (21:49)
[2020-09-16] MEDS ORDERED: MORPHINE SULFATE SR 15 MG TABLET PO SCH (22:00)
[2020-09-17] MEDS: HYDROMORPHONE HCL INJ/PF 2 MG/ML AMPULE IV PRN ×5 (02:10→22:16)
[2020-09-17] MEDS: PROMETHAZINE HCL INJ 25 MG/1 ML VIAL IV PRN ×3 (02:10→11:17)
[2020-09-17 05:17] LABS: HEMATOCRIT 32.2 % (36.0-47.0); HEMOGLOBIN 11.4 g/dL (12.0-15.5); MEAN CORPUSCULAR HEMOGLOBIN 31.8 pg (27.0-33.4); MEAN CORPUSCULAR HGB CONC 35.4 g/dL (32.0-36.0); MEAN CORPUSCULAR VOLUME 90 fl (80-97); PLATELET COUNT 186 10^3/uL (150-450); RED BLOOD COUNT 3.58 10^6/uL (3.72-5.28); RED CELL DISTRIBUTION WIDTH 14.6 % (11.5-14.0); WHITE BLOOD COUNT 5.8 10^3/uL (4.0-10.5)
[2020-09-17 05:30] LABS: ALBUMIN 2.9 g/dL (3.5-5.0); ALKALINE PHOSPHATASE 72 U/L (38-126); ANION GAP 9 (5-19); ASPARTATE AMINO TRANSFERASE 22 U/L (14-36); BILIRUBIN,DIRECT 0.4 mg/dL (0.0-0.4); BILIRUBIN,TOTAL 1.8 mg/dL (0.2-1.3); BLOOD UREA NITROGEN 8 mg/dL (7-20); CALCIUM 8.7 mg/dL (8.4-10.2); CARBON DIOXIDE 23 mmol/L (22-30); CHLORIDE 104 mmol/L (98-107); GLUCOSE 98 mg/dL (75-110); POTASSIUM 3.7 mmol/L (3.6-5.0); TOTAL PROTEIN 5.1 g/dL (6.3-8.2)
[2020-09-17] MEDS ORDERED: LUBIPROSTONE 24 MCG CAPSULE PO SCH (10:00)
[2020-09-17] MEDS ORDERED: MORPHINE SULFATE SR 30 MG TABLET PO SCH (10:00)
[2020-09-17] MEDS: LEVETIRACETAM 500 MG TABLET PO SCH ×2 (11:00→18:04)
[2020-09-17] MEDS: MAGNESIUM OXIDE 400 MG TABLET PO SCH (11:16)
[2020-09-17] MEDS: FAMOTIDINE 20 MG TABLET PO SCH ×2 (11:16→22:20)
[2020-09-17] MEDS: DOCUSATE SODIUM 100 MG CAPSULE PO SCH ×2 (11:17→18:04)
[2020-09-17] MEDS: CITALOPRAM HYDROBROMIDE 20 MG TABLET PO SCH (11:17)
[2020-09-17] MEDS: CEFTRIAXONE 2 GM/D5W RTU 2 GM/50 ML RTUPB IV SCH (11:18)
[2020-09-17] MEDS: LORAZEPAM 0.5 MG TABLET PO PRN (11:22)
[2020-09-17] MEDS: ENOXAPARIN SODIUM INJ 80 MG/0.8 ML DISP.SYRIN SUBCUT SCH ×2 (11:22→22:19)
--- NOTE | 2020-09-17 11:55 | PDOC CONSULTATION ---
Consultation Consult Date: 09/17/20 Provider Consulted: JIGNESH MENDOZA Consult reason:: Hematology/Oncology consultation was requested for patient with metastatic cancer and new PE. History of Present Illness Admission Date/PCP: 09/15/20 15:16 History of Present Illness: LISA SANCHEZ is a 49 year old female with stage IV breast cancer and brain mets who was on Hospice a few weeks ago. However, she had improved and revoked Hospice to persue possible aggressive therapy. She had been receiving physical therapy when suddenly she had chest pain and dyspnea. She was broght to the ED and found to have PE. She is now on Lovenox and IV dilaudid for pain. Daughter is at bedside. She states that the dilaudid is helping, but does not last long enough. She has also been constipated and new medication has been for this as well. Past Medical History Cardiac Medical History: Denies: Congestive Heart Failure, Coronary Artery Disease, Myocardial Inf arction, Pulmonary Embolism Pulmonary Medical History: Denies: Asthma, Chronic Obstructive Pulmonary Disease (COPD), Respiratory Failure Neurological Medical History: Reports: Other - Brain metastases Denies: Hemorrhagic CVA, Ischemic CVA Endocrine Medical History: Denies: Diabetes Mellitus Type 1, Diabetes Mellitus Type 2 Malignancy Medical History: Reports: Breast Cancer, Other - Brain metastases GI Medical History: Denies: Gastroesophageal Reflux Disease, Hepatitis, Peptic Ulcer Disease Skin Medical History: Denies: Eczema, Psoriasis Psychiatric Medical History: Denies: Alcohol Dependency, Dementia, Depression, Substance Abuse Traumatic Medical History: Reports: None Hematology: Denies: Anemia, Heparin Induced Thrombocytopenia Infectious Medical History: Reports: None Past Surgical History Past Surgical History: Reports: Section - X3, Hysterectomy Social History Lives with: Family Smoking Status: Never Smoker Electronic Cigarette use?: No Frequency of Alcohol Use: None Hx Recreational Drug Use: No Hx Prescription Drug Abuse: No - Advance Directive Resuscitation Status: Do Not Resuscitate Family History Family History: Reviewed & Not Pertinent Parental Family History Reviewed: Yes Children Family History Reviewed: No Sibling(s) Family History Reviewed.: Yes Medication/Allergy Home Medications: Citalopram Hydrobromide [Citalopram HBr] 20 mg PO DAILY 09/15/20 Hydroxyzine Pamoate [Vistaril 50 mg Capsule] 50 mg PO QHS 09/15/20 Levetiracetam 1,000 mg PO BID 09/15/20 Lorazepam [Ativan 0.5 mg Tablet] 1 mg PO Q8HP PRN 09/15/20 Morphine Sulfate [Ms-Contin Sr 15 mg Tablet] 15 mg PO Q12 09/15/20 Oxycodone HCl [Oxy-Ir 5 mg Tablet] 10 mg PO Q4HP PRN 09/15/20 Promethazine HCl [Phenergan 25 mg Tablet] 25 mg PO Q6HP PRN 09/15/20 Allergies/Adverse Reactions: No Known Allergies Allergy (Verified 05/18/20 16:17) Review of Systems Constitutional: ABSENT: fever(s), headache(s) Eyes: ABSENT: visual disturbances Ears: ABSENT: hearing changes Nose, Mouth, and Throat: ABSENT: sore throat Cardiovascular: PRESENT: chest pain, dyspnea on exertion Respiratory: PRESENT: dyspnea Gastrointestinal: PRESENT: constipation Neurological: PRESENT: confusion, frequent falls, numbness, paresthesias, weakness Hematologic/Lymphatic: ABSENT: easy bleeding Physical Exam Vital Signs: Temp Pulse Resp BP Pulse Ox 98.9 F 98 14 109/60 91 L 09/17/20 07:39 09/17/20 07:39 09/17/20 07:39 09/17/20 07:39 09/17/20 07:39 Intake & Output 09/16/20 09/17/20 09/18/20 06:59 06:59 06:59 Intake Total 1325 622 Output Total 300 Balance 1325 322 Weight 70.8 kg 70.8 kg General appearance: PRESENT: no acute distress, thin Head exam: PRESENT: normocephalic Eye exam: PRESENT: EOMI, PERRLA Neck exam: ABSENT: lymphadenopathy, tenderness Respiratory exam: PRESENT: clear to auscultation raphael, unlabored Cardiovascular exam: PRESENT: RRR GI/Abdominal exam: PRESENT: soft. ABSENT: tenderness Extremities exam: ABSENT: pedal edema Neurological exam: PRESENT: alert, altered Psychiatric exam: PRESENT: appropriate affect Skin exam: PRESENT: normal color Results Laboratory Results: 09/17/20 04:26 09/17/20 04:26 09/16/20 09/17/20 09/17/20 16:54 04:26 04:26 WBC 5.8 RBC 3.58 L Hgb 11.4 L Hct 32.2 L MCV 90 MCH 31.8 MCHC 35.4 RDW 14.6 H Plt Count 186 Sodium 135.7 L Potassium 3.7 Chloride 104 Carbon Dioxide 23 Anion Gap 9 BUN 8 Creatinine 0.51 L Est GFR ( Amer) > 60 Glucose 98 Calcium 8.7 Total Bilirubin 1.8 H AST 22 Alkaline Phosphatase 72 Total Protein 5.1 L Albumin 2.9 L Urine Color DARK YELLOW Urine Appearance CLEAR Urine pH 5.0 Ur Specific [place] 1.017 Urine Protein NEGATIVE Urine Glucose (UA) NEGATIVE Urine Ketones 80 H Urine Blood SMALL H Urine Nitrite POSITIVE H Ur Leukocyte Esterase TRACE H Urine WBC (Auto) 6 Urine RBC (Auto) 1 09/15/20 14:25 Catheterized Urine Urine Culture - Final Escherichia Coli 09/15/20 09/15/20 10:31 11:45 Troponin I Cancelled < 0.012 Impressions: Chest X-Ray 09/15/20 10:34 IMPRESSION: Minimal right basilar atelectasis Chest/Abdomen CTA 09/15/20 11:53 IMPRESSION: 1. Bilateral segmental and subsegmental pulmonary emboli. Atelectasis versus pulmonary infarct right lower lobe. No evidence of right heart strain. 2. New trace left pleural effusion. 3. Mild hepatic steatosis. 4. No acute abnormality in the abdomen or pelvis. Abdomen/Pelvis CT 09/15/20 12:03 IMPRESSION: 1. Bilateral segmental and subsegmental pulmonary emboli. Atelectasis versus pulmonary infarct right lower lobe. No evidence of right heart strain. 2. New trace left pleural effusion. 3. Mild hepatic steatosis. 4. No acute abnormality in the abdomen or pelvis. Status: Image reviewed by me Assessment & Plan - Diagnosis (1) Bilateral pulmonary embolism Is this a current diagnosis for this admission?: Yes Plan: She is on Lovenox. This can be continued at home. Family needs teaching for home use. (2) History of cancer metastatic to brain Is this a current diagnosis for this admission?: Yes Plan: Continue prior plan, as per Dr. Husain. She will follow-up with him after continuing PT. Will continue to increase MS contin as appropriate. I encoura ged patient to use PO pain meds in addition to the IV and to try to tire changer aircraft to PO so that she may be discharged home. - Plan Summary Plan Summary: Patient was discussed with Dr. Curtis.
--- NOTE | 2020-09-17 13:06 | PDOC PROGRESS REPORT ---
Subjective Date:: 09/17/20 Subjective:: The patient is clearly in a significant amount of pain. The pain today if seems to be focused in the right shoulder/clavicle area as well as the sternal area. Reason For Visit: BILATERAL PULMONARY EMBOLI,CHEST PAIN SECONDARY TO Physical Exam Vital Signs: Temp Pulse Resp BP Pulse Ox 98.9 F 98 14 109/60 91 L 09/17/20 10:00 09/17/20 07:39 09/17/20 07:39 09/17/20 07:39 09/17/20 07:39 Intake & Output 09/16/20 09/17/20 09/18/20 06:59 06:59 06:59 Intake Total 1325 622 Output Total 300 Balance 1325 322 Weight 70.8 kg 70.8 kg General appearance: PRESENT: cooperative, severe distress, well-developed Head exam: PRESENT: atraumatic, normocephalic Eye exam: PRESENT: conjunctiva pink. ABSENT: scleral icterus Ear exam: PRESENT: normal external ear exam. ABSENT: bleeding, drainage Mouth exam: PRESENT: dry mucosa, tongue midline Respiratory exam: PRESENT: decreased breath sounds - Due to shallow inspiratory phase, symmetrical, unlabored. ABSENT: rales, rhonchi, tachypnea, wheezes Cardiovascular exam: PRESENT: +S1, +S2, tachycardia. ABSENT: bradycardia, diastolic murmur, irregular rhythm, systolic murmur GI/Abdominal exam: PRESENT: normal bowel sounds, soft. ABSENT: tenderness Rectal exam: PRESENT: deferred Gentrourinary exam: ABSENT: indwelling catheter Extremities exam: ABSENT: pedal edema Musculoskeletal exam: PRESENT: normal inspection. ABSENT: deformity, dislocation Neurological exam: PRESENT: alert, awake, oriented to person, oriented to place, oriented to situation, other - At times the patient seem to have 1 dose of confusion. When talking about her brother she stated he was driving from [facility] when in fact he left to return to [place]. This certainly could be medication related. Psychiatric exam: PRESENT: appropriate affect - Affect reflects her discomfort.. ABSENT: agitated, anxious Results Laboratory Results: 09/17/20 04:26 09/17/20 04:26 09/16/20 09/17/20 09/17/20 16:54 04:26 04:26 WBC 5.8 RBC 3.58 L Hgb 11.4 L Hct 32.2 L MCV 90 MCH 31.8 MCHC 35.4 RDW 14.6 H Plt Count 186 Sodium 135.7 L Potassium 3.7 Chloride 104 Carbon Dioxide 23 Anion Gap 9 BUN 8 Creatinine 0.51 L Est GFR ( Amer) > 60 Glucose 98 Calcium 8.7 Total Bilirubin 1.8 H AST 22 Alkaline Phosphatase 72 Total Protein 5.1 L Albumin 2.9 L Urine Color DARK YELLOW Urine Appearance CLEAR Urine pH 5.0 Ur Specific [place] 1.017 Urine Protein NEGATIVE Urine Glucose (UA) NEGATIVE Urine Ketones 80 H Urine Blood SMALL H Urine Nitrite POSITIVE H Ur Leukocyte Esterase TRACE H Urine WBC (Auto) 6 Urine RBC (Auto) 1 09/15/20 14:25 Catheterized Urine Urine Culture - Final Escherichia Coli 09/15/20 09/15/20 10:31 11:45 Troponin I Cancelled < 0.012 Impressions: Chest X-Ray 09/15/20 10:34 IMPRESSION: Minimal right basilar atelectasis Chest/Abdomen CTA 09/15/20 11:53 IMPRESSION: 1. Bilateral segmental and subsegmental pulmonary emboli. Atelectasis versus pulmonary infarct right lower lobe. No evidence of right heart strain. 2. New trace left pleural effusion. 3. Mild hepatic steatosis. 4. No acute abnormality in the abdomen or pelvis. Abdomen/Pelvis CT 09/15/20 12:03 IMPRESSION: 1. Bilateral segmental and subsegmental pulmonary emboli. Atelectasis versus pulmonary infarct right lower lobe. No evidence of right heart strain. 2. New trace left pleural effusion. 3. Mild hepatic steatosis. 4. No acute abnormality in the abdomen or pelvis. 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 Heparin infusion will be started. This will be administered per the protocol. There is significant discomfort. Some of this is going to be due to the area in the right lower lobe that is suspicious for atelectasis versus infarct. We will continue her MS Contin 15 mg twice a day that she uses for chronic pain. Instead of OxyContin we will use Dilaudid for breakthrough pain. For the cancer antiemetics will be available. She does suffer from constipation and I may start her on lubiprostone as an inpatient or suggest Linzess for opioid-induced constipation. I believe the plan is for her to get stronger before starting chemotherapy. I will defer to oncology for management of her malignancy. The urinalysis was suggestive of infection. A culture is pending. I will hold antibiotics until there is a positive culture result or there seems to be a high clinical suspicion of infection. 09/16/2020 Bilateral pulmonary emboli-we will discontinue the heparin infusion in favor of Lovenox. This will cause the patient fewer phlebotomies/needlesticks which are very uncomfortable for her. We will then need to decide on outpatient oral therapy. I have initiated lubiprostone for opiate-induced constipation. We will start at 24 mcg daily. Pain-the 1 mg of Dilaudid every 4 hours is not holding. I will increase this to 1.5 mg. In addition we discussed changing the MS Contin. For tomorrow we will start 30 mg in the morning and 15 at night with eventual progression to 30 mg twice daily. The patient states that she was on Ambien for sleep but suffered adverse effects. She told me that she does tolerate the alprazolam. We will initiate a trial of temazepam at bedtime and see if this helps. Hyperbilirubinemia-bilirubin was 1.9. Will recheck tomorrow. Hyponatremia-sodium is 134. Will recheck tomorrow. Had a long discussion with the patient at the bedside. She is worried about her family and how they are handling her current illness. They thought the metastases were resolved however it was startling news when they were told that they had recurred. She just had a PET scan on August 31 and there was no uptake in the cerebrum. When she gets stronger there is evidently plan for additional treatment. She is frustrated with the degree of pain that she is having. 09/17/2020 The patient is having a significant amount of discomfort today. It is mostly on the right side. I believe this is due to the pulmonary emboli as the CT scan did not show any bony lesions. After lengthy discussion regarding pain management we are going to try a fentanyl patch. The equivalent dose of morphine sulfate 60 mg twice a day should be 25 mcg Duragesic patch. We will start at this dose. She will have oxycodone available p.o. for breakthrough pain. We are trying to focus on oral medications for transition to home. We will likely continue Lovenox dosing for the pulmonary emboli. We are continuing fluids. Bilirubin remains elevated at 1.8. Currently on ceftriaxone for her E. coli urinary infection. 1 blood culture bottle had gram-positive cocci in clusters. The ID screen was not positive for any of the included pathogens. This is likely coagulase-negative staph and as such is probably a contaminant. I did not change her antibiotic regimen at this time. - Time Time Spent with patient: 25-34 minutes Medications reviewed and adjusted accordingly: Yes Anticipated Discharge Disposition: Home with Home Health Anticipated Discharge Timeframe: within 72 hours
[2020-09-17] MEDS ORDERED: HYDROMORPHONE HCL INJ/PF 2 MG/ML AMPULE IV ONE (13:30)
[2020-09-17] MEDS: FENTANYL 25 MCG/HR PATCH.TD72 TD SCH (13:45)
[2020-09-17] MEDS: OXYCODONE HCL IR 5 MG TABLET PO PRN (18:04)
[2020-09-17] MEDS: HYDROXYZINE PAMOATE 50 MG CAPSULE PO SCH (22:20)
[2020-09-17] MEDS: TEMAZEPAM 7.5 MG CAPSULE PO SCH (22:20)
[2020-09-18] MEDS: OXYCODONE HCL IR 5 MG TABLET PO PRN ×4 (00:53→21:56)
[2020-09-18] MEDS: HYDROMORPHONE HCL INJ/PF 2 MG/ML AMPULE IV PRN ×2 (02:35→09:14)
[2020-09-18] MEDS: LORAZEPAM 0.5 MG TABLET PO PRN ×2 (05:09→15:02)
[2020-09-18] MEDS: DOCUSATE SODIUM 100 MG CAPSULE PO SCH ×2 (09:13→17:18)
[2020-09-18] MEDS: FAMOTIDINE 20 MG TABLET PO SCH ×2 (09:13→21:58)
[2020-09-18] MEDS: LEVETIRACETAM 500 MG TABLET PO SCH ×2 (09:13→17:18)
[2020-09-18] MEDS: MAGNESIUM OXIDE 400 MG TABLET PO SCH (09:13)
[2020-09-18] MEDS: CITALOPRAM HYDROBROMIDE 20 MG TABLET PO SCH (09:14)
[2020-09-18] MEDS: LUBIPROSTONE 24 MCG CAPSULE PO SCH ×2 (09:14→17:18)
[2020-09-18] MEDS: NORMAL SALINE 1000 ML 1,000 ML IV PRN (09:16)
[2020-09-18] MEDS: CEFTRIAXONE 2 GM/D5W RTU 2 GM/50 ML RTUPB IV SCH (09:20)
[2020-09-18] MEDS: ENOXAPARIN SODIUM INJ 80 MG/0.8 ML DISP.SYRIN SUBCUT SCH ×2 (11:49→21:53)
--- NOTE | 2020-09-18 12:12 | PDOC PROGRESS REPORT ---
Subjective Date:: 09/18/20 Subjective:: Patient remains confused today. She is not able to tell me which meds she has r eceived today. Family at bedside do not interact today, except to ask for a bed so that they may stay as well. Nurses report that she remains very confused. Small BM yesterday. No other concerns voiced. Reason For Visit: BILATERAL PULMONARY EMBOLI,CHEST PAIN SECONDARY TO Physical Exam Vital Signs: Temp Pulse Resp BP Pulse Ox 97.9 F 117 H 20 148/71 H 93 09/18/20 08:48 09/18/20 07:47 09/18/20 07:47 09/18/20 07:47 09/18/20 07:47 Intake & Output 09/17/20 09/18/20 09/19/20 06:59 06:59 06:59 Intake Total 622 170 Output Total 300 Balance 322 170 Weight 70.8 kg 70.6 kg General appearance: PRESENT: no acute distress Head exam: PRESENT: normocephalic Respiratory exam: PRESENT: unlabored Neurological exam: PRESENT: altered, awake Skin exam: PRESENT: normal color Results Laboratory Results: 09/17/20 04:26 09/17/20 04:26 09/15/20 12:34 Blood Blood Culture (PCR) - Final 09/15/20 14:25 Catheterized Urine Urine Culture - Final Escherichia Coli 09/15/20 09/15/20 10:31 11:45 Troponin I Cancelled < 0.012 Impressions: Chest X-Ray 09/15/20 10:34 IMPRESSION: Minimal right basilar atelectasis Chest/Abdomen CTA 09/15/20 11:53 IMPRESSION: 1. Bilateral segmental and subsegmental pulmonary emboli. Atelectasis versus pulmonary infarct right lower lobe. No evidence of right heart strain. 2. New trace left pleural effusion. 3. Mild hepatic steatosis. 4. No acute abnormality in the abdomen or pelvis. Abdomen/Pelvis CT 09/15/20 12:03 IMPRESSION: 1. Bilateral segmental and subsegmental pulmonary emboli. Atelectasis versus pulmonary infarct right lower lobe. No evidence of right heart strain. 2. New trace left pleural effusion. 3. Mild hepatic steatosis. 4. No acute abnormality in the abdomen or pelvis. Assessment & Plan - Diagnosis (1) Bilateral pulmonary embolism Is this a current diagnosis for this admission?: Yes Plan: Receiving Lovenox BID. Chest pain remains. I have again explained that my goal is to adjust pain meds such that pain may be controlled without the IV dilaudid and she may request po or IV pain meds. She does not seem to understand this. 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 Continue supportive care. - Time Time Spent with patient: 15-24 minutes
--- NOTE | 2020-09-18 15:19 | PDOC PROGRESS REPORT ---
Subjective Date:: 09/18/20 Subjective:: The patient does not appear to be in as much pain as yesterday. She still complains of pain in the right upper chest. It is near her Port-A-Cath but the port was not accessed for continuous use. It is hard to tell if it is related to inspiration as the patient is somewhat confused today. Reason For Visit: BILATERAL PULMONARY EMBOLI,CHEST PAIN SECONDARY TO Physical Exam Vital Signs: Temp Pulse Resp BP Pulse Ox 97.9 F 117 H 20 148/71 H 93 09/18/20 08:48 09/18/20 07:47 09/18/20 07:47 09/18/20 07:47 09/18/20 07:47 Intake & Output 09/17/20 09/18/20 09/19/20 06:59 06:59 06:59 Intake Total 622 170 50 Output Total 300 Balance 322 170 50 Weight 70.8 kg 70.6 kg General appearance: PRESENT: cooperative - But slightly confused, mild distress - Mild to moderate distress, well-developed Head exam: PRESENT: atraumatic, normocephalic Ear exam: PRESENT: normal external ear exam. ABSENT: bleeding, drainage Mouth exam: PRESENT: dry mucosa, tongue midline Respiratory exam: PRESENT: rales - Faint rales right base, symmetrical. ABSENT: chest wall tenderness - Palpation in the right upper chest reveals no tenderness., rhonchi, tachypnea, wheezes Cardiovascular exam: PRESENT: +S1, +S2, tachycardia. ABSENT: bradycardia, diastolic murmur, irregular rhythm, systolic murmur GI/Abdominal exam: PRESENT: normal bowel sounds, soft. ABSENT: distended, guarding, tenderness Rectal exam: ABSENT: deferred Gentrourinary exam: ABSENT: indwelling catheter Extremities exam: ABSENT: pedal edema Neurological exam: PRESENT: alert, altered, awake, oriented to person, oriented to place, other - Patient answer some questions appropriately. When I tried to review possible changes in medication to help her sleep she would have difficulty understanding. She would repeat back to me different information than what I provided. She in fact admitted that she has been having some d ifficulty follo Psychiatric exam: PRESENT: depressed - She began crying when talking about her brother. Evidently he was in [place] but unable to see the patient. He quevedo s driven back to [place]. She states that it is difficult to talk about him without getting upset. Evidently they are quite close.. ABSENT: agitated, anxious Focused psych exam: ABSENT: delusional, paranoid, restlessness Skin exam: PRESENT: dry, pallor, warm Results Laboratory Results: 09/17/20 04:26 09/17/20 04:26 09/15/20 12:34 Blood Blood Culture (PCR) - Final 09/15/20 09/15/20 10:31 11:45 Troponin I Cancelled < 0.012 Impressions: Chest X-Ray 09/15/20 10:34 IMPRESSION: Minimal right basilar atelectasis Chest/Abdomen CTA 09/15/20 11:53 IMPRESSION: 1. Bilateral segmental and subsegmental pulmonary emboli. Atelectasis versus pulmonary infarct right lower lobe. No evidence of right heart strain. 2. New trace left pleural effusion. 3. Mild hepatic steatosis. 4. No acute abnormality in the abdomen or pelvis. Abdomen/Pelvis CT 09/15/20 12:03 IMPRESSION: 1. Bilateral segmental and subsegmental pulmonary emboli. Atelectasis versus pulmonary infarct right lower lobe. No evidence of right heart strain. 2. New trace left pleural effusion. 3. Mild hepatic steatosis. 4. No acute abnormality in the abdomen or pelvis. 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 Heparin infusion will be started. This will be administered per the protocol. There is significant discomfort. Some of this is going to be due to the area in the right lower lobe that is suspicious for atelectasis versus infarct. We will continue her MS Contin 15 mg twice a day that she uses for chronic pain. Instead of OxyContin we will use Dilaudid for breakthrough pain. For the cancer antiemetics will be available. She does suffer from constipation and I may start her on lubiprostone as an inpatient or suggest Linzess for opioid-induced constipation. I believe the plan is for her to get stronger before starting chemotherapy. I will defer to oncology for management of her malignancy. The urinalysis was suggestive of infection. A culture is pending. I will hold antibiotics until there is a positive culture result or there seems to be a high clinical suspicion of infection. 09/16/2020 Bilateral pulmonary emboli-we will discontinue the heparin infusion in favor of Lovenox. This will cause the patient fewer phlebotomies/needlesticks which are very uncomfortable for her. We will then need to decide on outpatient oral therapy. I have initiated lubiprostone for opiate-induced constipation. We will start at 24 mcg daily. Pain-the 1 mg of Dilaudid every 4 hours is not holding. I will increase this to 1.5 mg. In addition we discussed changing the MS Contin. For tomorrow we will start 30 mg in the morning and 15 at night with eventual progression to 30 mg twice daily. The patient states that she was on Ambien for sleep but suffered adverse effects. She told me that she does tolerate the alprazolam. We will initiate a trial of temazepam at bedtime and see if this helps. Hyperbilirubinemia-bilirubin was 1.9. Will recheck tomorrow. Hyponatremia-sodium is 134. Will recheck tomorrow. Had a long discussion with the patient at the bedside. She is worried about her family and how they are handling her current illness. They thought the metastases were resolved however it was startling news when they were told that they had recurred. She just had a PET scan on August 31 and there was no uptake in the cerebrum. When she gets stronger there is evidently plan for additional treatment. She is frustrated with the degree of pain that she is having. 09/17/2020 The patient is having a significant amount of discomfort today. It is mostly on the right side. I believe this is due to the pulmonary emboli as the CT scan did not show any bony lesions. After lengthy discussion regarding pain management we are going to try a fentanyl patch. The equivalent dose of morphine sulfate 60 mg twice a day should be 25 mcg Duragesic patch. We will start at this dose. She will have oxycodone available p.o. for breakthrough pain. We are trying to focus on oral medications for transition to home. We will likely continue Lovenox dosing for the pulmonary emboli. We are continuing fluids. Bilirubin remains elevated at 1.8. Currently on ceftriaxone for her E. coli urinary infection. 1 blood culture bottle had gram-positive cocci in clusters. The ID screen was not positive for any of the included pathogens. This is likely coagulase-negative staph and as such is probably a contaminant. I did not change her antibiotic regimen at this time. 09/18/2020 The patient's confusion is most likely an adverse effect of change in pain medication however she was having mild confusion yesterday prior to the fentanyl patch being applied. We did increase the MS Contin slightly yesterday and so this could also be contributing. With her brain metastases it is hard to know if the malignancy is contributing to her acute encephalopathy. At this point it is impossible to determine the exact etiology but adverse effect of the medications does seem improbable. Pulmonary emboli-continue therapeutic Lovenox Right upper chest pain-there was suggestion of pulmonary infarct with multiple emboli. I believe this was in the right base. She did have multiple emboli. I am going to repeat a CT scan of the chest to reassess the lung tissue especially in the right upper lung field. The discomfort does not seem to be pleuritic but it is hard to tell as the patient has some difficulty describing specifics. Continue Rocephin for urinary tract infection. The antibiotic certainly could be contributing to her confusion but it is less likely. There is no evidence of E. coli bacteremia. Bilirubin was still elevated yesterday. We will recheck laboratory studies again tomorrow. Depression-the patient takes 50 mg of Vistaril at night. I have stopped the temazepam and will try trazodone in addition so as to try and promote better sleep. The temazepam could not have contributed to her confusion. - Time Time Spent with patient: 15-24 minutes Medications reviewed and adjusted accordingly: Yes Anticipated Discharge Disposition: Home with Home Health Anticipated Discharge Timeframe: within 72 hours
--- NOTE | 2020-09-18 18:10 | RADIOLOGY REPORT (SQ) ---
EXAM DESCRIPTION: CT CHEST WITHOUT IMAGES COMPLETED DATE/TIME: 09/18/2020 6:00 pm REASON FOR STUDY: Inc chest Pn with multiple PE's COMPARISON: 09/15/2020 TECHNIQUE: CT scan performed of the chest without intravenous contrast. Images reviewed with lung, soft tissue and bone windows. Reconstructed coronal and sagittal MPR images reviewed. All images st ored on PACS. All CT scanners at this facility use dose modulation, iterative reconstruction, and/or weight based d osing when appropriate to reduce radiation dose to as low as reasonably achievable (ALARA). [facility]: Dose Right [facility]: CareDose [facility]: Dose Right [facility]: Teradose 4D [facility]: [employer] RADIATION DOSE: CT Rad equipment meets quality standard of care and radiation dose reduction techniq ues were employed. CTDIvol: 13.9 mGy. DLP: 447 mGy-cm. mGy. LIMITATIONS: No technical limitations. FINDINGS: LUNGS AND PLEURA: Interval development of significant bilateral pleural effusions. Extens chasity consolidation with air bronchograms at both lung bases right greater than left. No pneumothorax. HILAR AND MEDIASTINAL STRUCTURES: No identified masses or abnormal nodes. No obvious aneurysm. HEART AND VASCULAR STRUCTURES: No aneurysm. No pericardial effusion. UPPER ABDOMEN: No significant findings. Limited exam. THYROID AND OTHER SOFT TISSUES: No masses. No adenopathy. BONES: No significant finding. HARDWARE: Venous access catheter. OTHER: No other significant findings. IMPRESSION: Interval development of significant bilateral pleural effusions with extensive consolida tion air bronchograms at both lung bases. TECHNICAL DOCUMENTATION: JOB ID: [id number] Quality ID # [id number]: Final reports with documentation of one or more dose reduction techniques (e.g., Au tomated exposure control, adjustment of the mA and/or kV according to patient size, use of iterative reconstruction technique) 2010 [employer]- All Rights Reserved Reading location - IP/workstation name: [email or web address]
[2020-09-18] MEDS: TRAZODONE HCL 50 MG TABLET PO SCH (21:58)
[2020-09-18] MEDS: HYDROXYZINE PAMOATE 50 MG CAPSULE PO SCH (21:58)
[2020-09-19] MEDS: LORAZEPAM 0.5 MG TABLET PO PRN ×2 (03:05→15:58)
[2020-09-19 06:51] LABS: HEMATOCRIT 27.2 % (36.0-47.0); HEMOGLOBIN 9.4 g/dL (12.0-15.5); MEAN CORPUSCULAR HEMOGLOBIN 31.3 pg (27.0-33.4); MEAN CORPUSCULAR HGB CONC 34.7 g/dL (32.0-36.0); MEAN CORPUSCULAR VOLUME 90 fl (80-97); PLATELET COUNT 231 10^3/uL (150-450); RED BLOOD COUNT 3.01 10^6/uL (3.72-5.28); RED CELL DISTRIBUTION WIDTH 14.5 % (11.5-14.0); WHITE BLOOD COUNT 6.4 10^3/uL (4.0-10.5)
[2020-09-19 07:39] LABS: ALBUMIN 2.4 g/dL (3.5-5.0); ALKALINE PHOSPHATASE 112 U/L (38-126); ANION GAP 7 (5-19); ASPARTATE AMINO TRANSFERASE 31 U/L (14-36); BILIRUBIN,DIRECT 0.4 mg/dL (0.0-0.4); BILIRUBIN,TOTAL 1.2 mg/dL (0.2-1.3); BLOOD UREA NITROGEN 6 mg/dL (7-20); CALCIUM 8.3 mg/dL (8.4-10.2); CARBON DIOXIDE 24 mmol/L (22-30); CHLORIDE 107 mmol/L (98-107); GLUCOSE 93 mg/dL (75-110); POTASSIUM 3.4 mmol/L (3.6-5.0); TOTAL PROTEIN 4.6 g/dL (6.3-8.2)
[2020-09-19] MEDS: OXYCODONE HCL IR 5 MG TABLET PO PRN ×4 (08:03→21:28)
--- NOTE | 2020-09-19 08:55 | PDOC PROGRESS REPORT ---
Subjective Date:: 09/19/20 Subjective:: Patient is much more confused today. No family is at bedside. She is asking if family will be able to come and visit today. She is worried about a ventral hernia. There is no pain, but she is concerned about this. She states that she still has pain in her chest, but cannot tell me which pain meds she has had or if they are working. Nurses report that she is becoming more confused and combative. She is refusing some of her meds. I tried to discuss Hospice with her, but she did not seem to understand. She is "awaiting results of more scans." Reason For Visit: BILATERAL PULMONARY EMBOLI,CHEST PAIN SECONDARY TO Physical Exam Vital Signs: Temp Pulse Resp BP Pulse Ox 98.6 F 100 14 115/56 L 91 L 09/18/20 23:00 09/18/20 23:00 09/18/20 23:00 09/18/20 23:00 09/18/20 23:00 Intake & Output 09/18/20 09/19/20 09/20/20 06:59 06:59 06:59 Intake Total 170 290 Balance 170 290 Weight 70.6 kg 70.6 kg General appearance: PRESENT: no acute distress Head exam: PRESENT: normocephalic Eye exam: PRESENT: EOMI Respiratory exam: PRESENT: unlabored Cardiovascular exam: PRESENT: RRR GI/Abdominal exam: PRESENT: soft. ABSENT: mass, tenderness Extremities exam: ABSENT: pedal edema Neurological exam: PRESENT: altered. ABSENT: oriented to time, oriented to situation Focused psych exam: PRESENT: delusional Skin exam: PRESENT: pallor Results Laboratory Results: 09/19/20 05:55 09/19/20 05:55 09/19/20 09/19/20 05:55 05:55 WBC 6.4 RBC 3.01 L Hgb 9.4 L Hct 27.2 L MCV 90 MCH 31.3 MCHC 34.7 RDW 14.5 H Plt Count 231 Sodium 138.0 Potassium 3.4 L Chloride 107 Carbon Dioxide 24 Anion Gap 7 BUN 6 L Creatinine 0.49 L Est GFR ( Amer) > 60 Glucose 93 Calcium 8.3 L Magnesium 2.0 Total Bilirubin 1.2 AST 31 Alkaline Phosphatase 112 Total Protein 4.6 L Albumin 2.4 L 09/15/20 12:34 Blood Blood Culture (PCR) - Final 09/15/20 12:34 Blood Blood Culture - Final Micrococcus Species 09/15/20 09/15/20 10:31 11:45 Troponin I Cancelled < 0.012 Impressions: Chest X-Ray 09/15/20 10:34 IMPRESSION: Minimal right basilar atelectasis Chest/Abdomen CTA 09/15/20 11:53 IMPRESSION: 1. Bilateral segmental and subsegmental pulmonary emboli. Atelectasis versus pulmonary infarct right lower lobe. No evidence of right heart strain. 2. New trace left pleural effusion. 3. Mild hepatic steatosis. 4. No acute abnormality in the abdomen or pelvis. Abdomen/Pelvis CT 09/15/20 12:03 IMPRESSION: 1. Bilateral segmental and subsegmental pulmonary emboli. Atelectasis versus pulmonary infarct right lower lobe. No evidence of right heart strain. 2. New trace left pleural effusion. 3. Mild hepatic steatosis. 4. No acute abnormality in the abdomen or pelvis. Chest CT 09/18/20 00:00 IMPRESSION: Interval development of significant bilateral pleural effusions with extensive consolidation air bronchograms at both lung bases. Assessment & Plan - Diagnosis (1) Bilateral pulmonary embolism Is this a current diagnosis for this admission?: Yes Plan: On Lovenox. Patient is not able to administer these at home. If family is able to do this, then she may be discharged home with these. 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 However, family will discuss further with Dr. Husain tomorrow. - Time Time Spent with patient: Less than 15 minutes
[2020-09-19] MEDS: LEVETIRACETAM 500 MG TABLET PO SCH ×2 (09:55→17:07)
[2020-09-19] MEDS: CEFTRIAXONE 2 GM/D5W RTU 2 GM/50 ML RTUPB IV SCH (09:55)
[2020-09-19] MEDS: LUBIPROSTONE 24 MCG CAPSULE PO SCH ×2 (09:55→17:07)
[2020-09-19] MEDS: DOCUSATE SODIUM 100 MG CAPSULE PO SCH ×2 (09:55→17:07)
[2020-09-19] MEDS: FAMOTIDINE 20 MG TABLET PO SCH ×2 (09:56→21:26)
[2020-09-19] MEDS: CITALOPRAM HYDROBROMIDE 20 MG TABLET PO SCH (09:56)
[2020-09-19] MEDS: MAGNESIUM OXIDE 400 MG TABLET PO SCH (09:56)
[2020-09-19] MEDS: ENOXAPARIN SODIUM INJ 80 MG/0.8 ML DISP.SYRIN SUBCUT SCH ×2 (10:01→21:41)
[2020-09-19] MEDS: NORMAL SALINE 1000 ML 1,000 ML IV PRN (10:01)
[2020-09-19] MEDS ORDERED: VANCOMYCIN HCL 0 MG in DEXTROSE 5%-WATER 250 ML IV NR (11:45)
[2020-09-19] MEDS: PROMETHAZINE HCL INJ 25 MG/1 ML VIAL IV PRN (11:50)
[2020-09-19] MEDS ORDERED: POTASSI CL 20 MEQ/50 ML RIDER 20 MEQ/50 ML RTUPB IV ONE (12:30)
--- NOTE | 2020-09-19 13:11 | PDOC PROGRESS REPORT ---
Subjective Date:: 09/19/20 Subjective:: The patient clearly seems to be in less pain. She is still occasionally confuse d and has trouble following her train of thought. She actually knows that she is having episodes of confusion. Reason For Visit: BILATERAL PULMONARY EMBOLI,CHEST PAIN SECONDARY TO Physical Exam Vital Signs: Temp Pulse Resp BP Pulse Ox 98.3 F 94 16 110/61 91 L 09/19/20 08:57 09/19/20 08:57 09/19/20 08:57 09/19/20 08:57 09/19/20 12:37 Intake & Output 09/18/20 09/19/20 09/20/20 06:59 06:59 06:59 Intake Total 456 194 0476 Balance 306 441 3066 Weight 70.6 kg 70.6 kg General appearance: PRESENT: cooperative, mild distress Respiratory exam: PRESENT: decreased breath sounds, rales. ABSENT: rhonchi, tachypnea, wheezes Cardiovascular exam: PRESENT: RRR, +S1, +S2 GI/Abdominal exam: PRESENT: normal bowel sounds, soft. ABSENT: tenderness Rectal exam: PRESENT: deferred Gentrourinary exam: ABSENT: indwelling catheter Extremities exam: ABSENT: pedal edema Results Laboratory Results: 09/19/20 05:55 09/19/20 05:55 09/19/20 09/19/20 05:55 05:55 WBC 6.4 RBC 3.01 L Hgb 9.4 L Hct 27.2 L MCV 90 MCH 31.3 MCHC 34.7 RDW 14.5 H Plt Count 231 Sodium 138.0 Potassium 3.4 L Chloride 107 Carbon Dioxide 24 Anion Gap 7 BUN 6 L Creatinine 0.49 L Est GFR ( Amer) > 60 Glucose 93 Calcium 8.3 L Magnesium 2.0 Total Bilirubin 1.2 AST 31 Alkaline Phosphatase 112 Total Protein 4.6 L Albumin 2.4 L 09/15/20 12:34 Blood Blood Culture (PCR) - Final 09/15/20 12:34 Blood Blood Culture - Final Micrococcus Species 09/15/20 09/15/20 10:31 11:45 Troponin I Cancelled < 0.012 Impressions: Chest X-Ray 09/15/20 10:34 IMPRESSION: Minimal right basilar atelectasis Chest/Abdomen CTA 09/15/20 11:53 IMPRESSION: 1. Bilateral segmental and subsegmental pulmonary emboli. Atelectasis versus pulmonary infarct right lower lobe. No evidence of right heart strain. 2. New trace left pleural effusion. 3. Mild hepatic steatosis. 4. No acute abnormality in the abdomen or pelvis. Abdomen/Pelvis CT 09/15/20 12:03 IMPRESSION: 1. Bilateral segmental and subsegmental pulmonary emboli. Atelectasis versus p ulmonary infarct right lower lobe. No evidence of right heart strain. 2. New trace left pleural effusion. 3. Mild hepatic steatosis. 4. No acute abnormality in the abdomen or pelvis. Chest CT 09/18/20 00:00 IMPRESSION: Interval development of significant bilateral pleural effusions with extensive consolidation air bronchograms at both lung bases. 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 Heparin infusion will be started. This will be administered per the protocol. There is significant discomfort. Some of this is going to be due to the area in the right lower lobe that is suspicious for atelectasis versus infarct. We will continue her MS Contin 15 mg twice a day that she uses for chronic pain. Instead of OxyContin we will use Dilaudid for breakthrough pain. For the cancer antiemetics will be available. She does suffer from constipation and I may start her on lubiprostone as an inpatient or suggest Linzess for opioid-induced constipation. I believe the plan is for her to get stronger before starting chemotherapy. I will defer to oncology for management of her malignancy. The urinalysis was suggestive of infection. A culture is pending. I will hold antibiotics until there is a positive culture result or there seems to be a high clinical suspicion of infection. 09/16/2020 Bilateral pulmonary emboli-we will discontinue the heparin infusion in favor of Lovenox. This will cause the patient fewer phlebotomies/needlesticks which are very uncomfortable for her. We will then need to decide on outpatient oral therapy. I have initiated lubiprostone for opiate-induced constipation. We will start at 24 mcg daily. Pain-the 1 mg of Dilaudid every 4 hours is not holding. I will increase this to 1.5 mg. In addition we discussed changing the MS Contin. For tomorrow we will start 30 mg in the morning and 15 at night with eventual progression to 30 mg twice daily. The patient states that she was on Ambien for sleep but suffered adverse effects. She told me that she does tolerate the alprazolam. We will initiate a trial of temazepam at bedtime and see if this helps. Hyperbilirubinemia-bilirubin was 1.9. Will recheck tomorrow. Hyponatremia-sodium is 134. Will recheck tomorrow. Had a long discussion with the patient at the bedside. She is worried about her family and how they are handling her current illness. They thought the metastases were resolved however it was startling news when they were told that they had recurred. She just had a PET scan on August 31 and there was no uptake in the cerebrum. When she gets stronger there is evidently plan for additional treatment. She is frustrated with the degree of pain that she is having. 09/17/2020 The patient is having a significant amount of discomfort today. It is mostly on the right side. I believe this is due to the pulmonary emboli as the CT scan did not show any bony lesions. After lengthy discussion regarding pain management we are going to try a fentanyl patch. The equivalent dose of morphine sulfate 60 mg twice a day should be 25 mcg Duragesic patch. We will start at this dose. She will have oxycodone available p.o. for breakthrough pain. We are trying to focus on oral medications for transition to home. We will likely continue Lovenox dosing for the pulmonary emboli. We are continuing fluids. Bilirubin remains elevated at 1.8. Currently on ceftriaxone for her E. coli urinary infection. 1 blood culture bottle had gram-positive cocci in clusters. The ID screen was not positive for any of the included pathogens. This is likely coagulase-negative staph and as such is probably a contaminant. I did not change her antibiotic regimen at this time. 09/18/2020 The patient's confusion is most likely an adverse effect of change in pain medication however she was having mild confusion yesterday prior to the fentanyl patch being applied. We did increase the MS Contin slightly yesterday and so this could also be contributing. With her brain metastases it is hard to know if the malignancy is contributing to her acute encephalopathy. At this point it is impossible to determine the exact etiology but adverse effect of the medications does seem improbable. Pulmonary emboli-continue therapeutic Lovenox Right upper chest pain-there was suggestion of pulmonary infarct with multiple emboli. I believe this was in the right base. She did have multiple emboli. I am going to repeat a CT scan of the chest to reassess the lung tissue especially in the right upper lung field. The discomfort does not seem to be pleuritic but it is hard to tell as the patient has some difficulty describing specifics. Continue Rocephin for urinary tract infection. The antibiotic certainly could be contributing to her confusion but it is less likely. There is no evidence of E. coli bacteremia. Bilirubin was still elevated yesterday. We will recheck laboratory studies again tomorrow. Depression-the patient takes 50 mg of Vistaril at night. I have stopped the temazepam and will try trazodone in addition so as to try and promote better sleep. The temazepam could not have contributed to her confusion. 09/19/[address] Lantigua's note from earlier today. The CT scan of the chest revealed significant bilateral pleural effusions not present on admission. Dense opacifications with air bronchograms bilateral bases as well. I have changed her antibiotics from ceftriaxone to vancomycin and cefepime. To perform thoracentesis we will need to hold the Lovenox for at least 24 hours. There are several possibilities for her confusion. Certainly infection would be 1. We are addressing that by changing the antibiotic. Adverse effects of medication-on the fentanyl patch and oral oxycodone she seems to have much better control. I have discontinued the Dilaudid altogether to encourage use of oral medications. It is possible that it is the fentanyl patch but hopefully it is not as it seems to be providing better pain control than twice daily dosing of MS Contin. Unfortunately the patient is having 1 complication after another. It started with bilateral pulmonary emboli. There are no effusions and basilar infiltrates. Several possible causes of her confusion exist as well. I did talk to the patient's nurse. There was some talk of home with hospice. Dr. Lantigua's note mentioned it as well. Dr. Husain will be seeing the patient tomorrow and may pursue this further. Unfortunately with the number and severity of complications her prognosis is quite poor. - Time Time Spent with patient: 15-24 minutes Medications reviewed and adjusted accordingly: Yes Anticipated Discharge Disposition: Hospice? Anticipated Discharge Timeframe: within 48 hours
--- NOTE | 2020-09-19 14:14 | CDI QUERY ---
CDI Query CDI Review: Dear Provider, To capture severity of illness, please further specify "acute encephalopathy" and document in progress notes and D/C summary: LIKELY COMBINATION of ACUTE METABOLIC and ACUTE TOXIC ENCEPHALOPATHY, resolving? improving? other? UNABLE TO DETERMINE OTHER Clinical findings: confusion possible to brain mets / malignancy possible fentanyl patch / meds Thanks, Payton Coronado, TIFFANY [phone]
[2020-09-19] MEDS: VANCOMYCIN HCL 1,000 MG in DEXTROSE 5%-WATER 250 ML IV SCH ×2 (15:59→22:43)
[2020-09-19] MEDS: TRAZODONE HCL 50 MG TABLET PO SCH (21:26)
[2020-09-19] MEDS: CEFEPIME 1 GM/D5W RTU 1 GM/50 ML RTUPB IV SCH (21:27)
[2020-09-19] MEDS: HYDROXYZINE PAMOATE 50 MG CAPSULE PO SCH (21:27)
[2020-09-20] MEDS: LORAZEPAM 0.5 MG TABLET PO PRN ×2 (02:27→14:35)
[2020-09-20] MEDS: VANCOMYCIN HCL 1,000 MG in DEXTROSE 5%-WATER 250 ML IV SCH ×2 (05:14→14:53)
[2020-09-20] MEDS: OXYCODONE HCL IR 5 MG TABLET PO PRN ×3 (06:04→15:57)
--- NOTE | 2020-09-20 08:44 | PDOC PROGRESS REPORT ---
Subjective Date:: 09/20/20 Subjective:: Pt has been doing poorly, very confused, had long discussion w/ daughter at bedside. Daughter and son both agreeable to comfort care, but has not been ready. I have placed a call to to discuss further Reason For Visit: BILATERAL PULMONARY EMBOLI,CHEST PAIN SECONDARY TO Physical Exam Vital Signs: Temp Pulse Resp BP Pulse Ox 99.3 F 103 H 17 142/57 H 92 09/20/20 05:50 09/20/20 00:55 09/20/20 00:55 09/20/20 00:55 09/20/20 00:55 Intake & Output 09/19/20 09/20/20 09/21/20 06:59 06:59 06:59 Intake Total 290 2771 Output Total 1 Balance 290 2770 Weight 70.6 kg 70.6 kg General appearance: PRESENT: no acute distress, well-developed, well-nourished Head exam: PRESENT: atraumatic, normocephalic Eye exam: PRESENT: conjunctiva pink, EOMI, PERRLA. ABSENT: scleral icterus Ear exam: PRESENT: normal external ear exam Mouth exam: PRESENT: moist, tongue midline Neck exam: ABSENT: carotid bruit, JVD, lymphadenopathy, thyromegaly Respiratory exam: PRESENT: clear to auscultation raphael. ABSENT: rales, rhonchi, wheezes Cardiovascular exam: PRESENT: RRR. ABSENT: diastolic murmur, rubs, systolic murmur Pulses: PRESENT: normal dorsalis pedis pul Vascular exam: PRESENT: normal capillary refill GI/Abdominal exam: PRESENT: normal bowel sounds, soft. ABSENT: distended, guarding, mass, organolmegaly, rebound, tenderness Rectal exam: PRESENT: deferred Extremities exam: PRESENT: full ROM. ABSENT: calf tenderness, clubbing, pedal edema Neurological exam: PRESENT: alert, awake, oriented to person, oriented to place, oriented to time, oriented to situation, CN II-XII grossly intact. ABSENT: motor sensory deficit Psychiatric exam: PRESENT: appropriate affect, normal mood. ABSENT: homicidal ideation, suicidal ideation Skin exam: PRESENT: dry, intact, warm. ABSENT: cyanosis, rash Results Laboratory Results: 09/19/20 05:55 09/19/20 05:55 09/15/20 09/15/20 10:31 11:45 Troponin I Cancelled < 0.012 Impressions: Chest X-Ray 09/15/20 10:34 IMPRESSION: Minimal right basilar atelectasis Chest/Abdomen CTA 09/15/20 11:53 IMPRESSION: 1. Bilateral segmental and subsegmental pulmonary emboli. Atelectasis versus pulmonary infarct right lower lobe. No evidence of right heart strain. 2. New trace left pleural effusion. 3. Mild hepatic steatosis. 4. No acute abnormality in the abdomen or pelvis. Abdomen/Pelvis CT 09/15/20 12:03 IMPRESSION: 1. Bilateral segmental and subsegmental pulmonary emboli. Atelectasis versus pulmonary infarct right lower lobe. No evidence of right heart strain. 2. New trace left pleural effusion. 3. Mild hepatic steatosis. 4. No acute abnormality in the abdomen or pelvis. Chest CT 09/18/20 00:00 IMPRESSION: Interval development of significant bilateral pleural effusions with extensive consolidation air bronchograms at both lung bases. 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 But she really had not improved, b/l LE flaccid, pt continually confused now. Hospice appropriate but who is current medical POA needs to agree. Will discuss further with him. - Time Time Spent with patient: 35 or more minutes
[2020-09-20 09:34] VITALS: BP 109/52
[2020-09-20] MEDS: LEVETIRACETAM 500 MG TABLET PO SCH ×2 (10:55→18:44)
[2020-09-20] MEDS: MAGNESIUM OXIDE 400 MG TABLET PO SCH (10:55)
[2020-09-20] MEDS: LUBIPROSTONE 24 MCG CAPSULE PO SCH ×2 (10:55→18:44)
[2020-09-20] MEDS: CITALOPRAM HYDROBROMIDE 20 MG TABLET PO SCH (10:55)
[2020-09-20] MEDS: DOCUSATE SODIUM 100 MG CAPSULE PO SCH ×2 (10:55→18:44)
[2020-09-20] MEDS: CEFEPIME 1 GM/D5W RTU 1 GM/50 ML RTUPB IV SCH (10:55)
[2020-09-20] MEDS: FAMOTIDINE 20 MG TABLET PO SCH (10:55)
[2020-09-20] MEDS: ENOXAPARIN SODIUM INJ 80 MG/0.8 ML DISP.SYRIN SUBCUT SCH (10:56)
[2020-09-20] MEDS: PROMETHAZINE HCL INJ 25 MG/1 ML VIAL IV PRN ×2 (10:56→15:55)
[2020-09-20] MEDS: FENTANYL 25 MCG/HR PATCH.TD72 TD SCH (10:56)
[2020-09-20 14:47] LABS: VANCOMYCIN,TROUGH 14.9 ug/mL (5.0-20.0)
--- NOTE | 2020-09-20 16:37 | PDOC DISCHARGE SUMMARY ---
Impression - Admit/DC Date/PCP Admission Date/Primary Care Provider: 09/15/20 15:16 Discharge Date: 09/20/20 - Discharge Diagnosis (1) Bilateral pulmonary embolism Is this a current diagnosis for this admission?: Yes (2) Breast cancer of upper-inner quadrant of left female breast Is this a current diagnosis for this admission?: Yes (3) Chest pain Is this a current diagnosis for this admission?: Yes (4) Encephalopathy acute Is this a current diagnosis for this admission?: Yes (5) History of cancer metastatic to brain Is this a current diagnosis for this admission?: Yes (6) Pain of metastatic malignancy Is this a current diagnosis for this admission?: Yes - Assessment Summary: LISA SANCHEZ is a 49 year old female with breast cancer metastatic to the brain, s/p WBR. She was previously on hospice, but revoked hospice to start physical therapy in an effort to regain strength, with the goal of pursuing chemotherapy in the future. During PT, she suddenly developed chest pain and worsening shortness of breath, so she was brought to the ED. CT angiogram showed multiple bilateral PE as well lung infarction. She was started on anticoagulation. Hematology/Oncology was consulted. Her pain regimen was adjusted due to worsening pain, due to combination of metastatic cancer and PE with lung infarction. Hospital course was complicated by acute encephalopathy, likely due to combination of brain metastases, hospital delirium and increase in opioid pain medications. Repeat CT chest revealed significant bilateral pleural effusions not present on admission as well as dense opacifications with air bronchograms bilaterally, and she was started on broad spectrum antibiotic therapy with vancomycin and cefepime. She unfortunately continued to have worsening mental status. Due to poor overall prognosis and multiple complications, advance care planning discussion was held between patient, family and oncology. Family has decided to restart home hospice services and transition to comfort measures only. Patient is now ready for discharge home with hospice for ongoing symptom management. - Additional Information Resuscitation Status: Comfort Measures Only Discharge Diet: As Tolerated Discharge Activity: Bedrest Referrals: MACARENA KIM MD [ACTIVE STAFF] - Home Medications: Citalopram Hydrobromide [Citalopram HBr] 20 mg PO DAILY 09/15/20 Hydroxyzine Pamoate [Vistaril 50 mg Capsule] 50 mg PO QHS 09/15/20 Levetiracetam 1,000 mg PO BID 09/15/20 Lorazepam [Ativan 0.5 mg Tablet] 1 mg PO Q8HP PRN 09/15/20 Morphine Sulfate [Ms-Contin Sr 15 mg Tablet] 15 mg PO Q12 09/15/20 Oxycodone HCl [Oxy-Ir 5 mg Tablet] 10 mg PO Q4HP PRN 09/15/20 Promethazine HCl [Phenergan 25 mg Tablet] 25 mg PO Q6HP PRN 09/15/20 Enoxaparin Sodium [Lovenox Inj 80 mg/0.8 ml Disp.syrin] 70 mg SUBCUT Q12 disp.syrin 09/20/20 Fentanyl [Duragesic 25 mcg/hr Transdermal Patch] 1 each TD Q3DAYS [id number] 09/20/20 History of Present Illiness History of Present Illness: LISA SANCHEZ is a 49 year old female Physical Exam Vital Signs: Temp Pulse Resp BP Pulse Ox 97.8 F 92 16 109/52 L 94 09/20/20 08:14 09/20/20 08:14 09/20/20 08:14 09/20/20 08:14 09/20/20 08:14 Intake & Output 09/19/20 09/20/20 09/21/20 06:59 06:59 06:59 Intake Total 290 2771 50 Output Total 1 Balance 290 2770 50 Weight 70.6 kg 70.6 kg Results Laboratory Results: WBC 6.4 10^3/uL (4.0-10.5) 09/19/20 05:55 RBC 3.01 10^6/uL (3.72-5.28) L 09/19/20 05:55 Hgb 9.4 g/dL (12.0-15.5) L 09/19/20 05:55 Hct 27.2 % (36.0-47.0) L 09/19/20 05:55 MCV 90 fl (80-97) 09/19/20 05:55 MCH 31.3 pg (27.0-33.4) 09/19/20 05:55 MCHC 34.7 g/dL (32.0-36.0) 09/19/20 05:55 RDW 14.5 % (11.5-14.0) H 09/19/20 05:55 Plt Count 231 10^3/uL (150-450) 09/19/20 05:55 Lymph % (Auto) 11.5 % (13-45) L 09/15/20 10:31 Todd % (Auto) 15.5 % (3-13) H 09/15/20 10:31 Eos % (Auto) 1.3 % (0-6) 09/15/20 10:31 Baso % (Auto) 0.4 % (0-2) 09/15/20 10:31 Absolute Neuts (auto) 4.8 10^3/uL (1.7-8.2) 09/15/20 10:31 Absolute Lymphs (auto) 0.8 10^3/uL (0.5-4.7) 09/15/20 10:31 Absolute Monos (auto) 1.0 10^3/uL (0.1-1.4) 09/15/20 10:31 Absolute Eos (auto) 0.1 10^3/uL (0.0-0.6) 09/15/20 10:31 Absolute Basos (auto) 0.0 10^3/uL (0.0-0.2) 09/15/20 10:31 Seg Neutrophils % 71.3 % (42-78) 09/15/20 10:31 PT 14.9 SEC (11.4-15.4) 09/15/20 14:50 INR 1.15 09/15/20 14:50 APTT 99.5 SEC (23.5-35.8) H 09/16/20 15:46 Sodium 138.0 mmol/L (137-145) 09/19/20 05:55 Potassium 3.4 mmol/L (3.6-5.0) L 09/19/20 05:55 Chloride 107 mmol/L (98-107) 09/19/20 05:55 Carbon Dioxide 24 mmol/L (22-30) 09/19/20 05:55 Anion Gap 7 (5-19) 09/19/20 05:55 BUN 6 mg/dL (7-20) L 09/19/20 05:55 Creatinine 0.46 mg/dL (0.52-1.25) L 09/20/20 13:45 Est GFR ( Amer) > 60 (>60) 09/20/20 13:45 Est GFR (Non-Af Amer) Cancelled 09/15/20 10:31 Est GFR (MDRD) Non-Af > 60 (>60) 09/20/20 13:45 Glucose 93 mg/dL (75-110) 09/19/20 05:55 POC Glucose 112 mg/dL (70-110) H 09/17/20 18:22 Calcium 8.3 mg/dL (8.4-10.2) L 09/19/20 05:55 Magnesium 2.0 mg/dL (1.6-2.3) 09/19/20 05:55 Total Bilirubin 1.2 mg/dL (0.2-1.3) 09/19/20 05:55 Direct Bilirubin 0.4 mg/dL (0.0-0.4) 09/19/20 05:55 Neonat Total Bilirubin Not Reportable 09/19/20 05:55 Neonat Direct Bilirubin Not Reportable 09/19/20 05:55 Neonat Indirect Bili Not Reportable 09/19/20 05:55 AST 31 U/L (14-36) 09/19/20 05:55 ALT 30 U/L (<35) 09/19/20 05:55 Alkaline Phosphatase 112 U/L (38-126) 09/19/20 05:55 Troponin I < 0.012 ng/mL 09/15/20 11:45 Total Protein 4.6 g/dL (6.3-8.2) L 09/19/20 05:55 Albumin 2.4 g/dL (3.5-5.0) L 09/19/20 05:55 EGFR Cancelled 09/15/20 10:31 Urine Color DARK YELLOW 09/16/20 16:54 Urine Appearance CLEAR 09/16/20 16:54 Urine pH 5.0 (5.0-9.0) 09/16/20 16:54 Ur Specific [place] 1.017 09/16/20 16:54 Urine Protein NEGATIVE mg/dL (NEGATIVE) 09/16/20 16:54 Urine Glucose (UA) NEGATIVE mg/dL (NEGATIVE) 09/16/20 16:54 Urine Ketones 80 mg/dL (NEGATIVE) H 09/16/20 16:54 Urine Blood SMALL (NEGATIVE) H 09/16/20 16:54 Urine Nitrite POSITIVE (NEGATIVE) H 09/16/20 16:54 Urine Bilirubin NEGATIVE (NEGATIVE) 09/16/20 16:54 Urine Urobilinogen 2.0 mg/dL (<2.0) H 09/16/20 16:54 Ur Leukocyte Esterase TRACE (NEGATIVE) H 09/16/20 16:54 Urine WBC (Auto) 6 /HPF 09/16/20 16:54 Urine RBC (Auto) 1 /HPF 09/16/20 16:54 U Hyaline Cast (Auto) 1 /LPF 09/16/20 16:54 Urine Bacteria (Auto) TRACE /HPF 09/16/20 16:54 Squamous Epi Cells Auto <1 /HPF 09/16/20 16:54 Calcium Oxalate Cr Auto RARE /HPF 09/16/20 06:33 Urine Mucus (Auto) RARE /LPF 09/16/20 16:54 Urine Ascorbic Acid NEGATIVE (NEGATIVE) 09/16/20 16:54 Time Trough Drawn 1345 09/20/20 13:45 Vancomycin Trough 14.9 ug/mL (5.0-20.0) 09/20/20 13:45 09/15/20 09/15/20 10:31 11:45 Troponin I Cancelled < 0.012 Impressions: Chest X-Ray 09/15/20 10:34 IMPRESSION: Minimal right basilar atelectasis Chest/Abdomen CTA 09/15/20 11:53 IMPRESSION: 1. Bilateral segmental and subsegmental pulmonary emboli. Atelectasis versus pulmonary infarct right lower lobe. No evidence of right heart strain. 2. New trace left pleural effusion. 3. Mild hepatic steatosis. 4. No acute abnormality in the abdomen or pelvis. Abdomen/Pelvis CT 09/15/20 12:03 IMPRESSION: 1. Bilateral segmental and subsegmental pulmonary emboli. Atelectasis versus pulmonary infarct right lower lobe. No evidence of right heart strain. 2. New trace left pleural effusion. 3. Mild hepatic steatosis. 4. No acute abnormality in the abdomen or pelvis. Chest CT 09/18/20 00:00 IMPRESSION: Interval development of significant bilateral pleural effusions with extensive consolidation air bronchograms at both lung bases. Stroke Is this a Stroke Patient?: No Acute Heart Failure Is this a Heart Failure Patient?: No
[2020-09-21] MEDS ORDERED: INFLUENZA QUAD (6MOS+) 2020-21 VAC 0.5 ML SYR IM ONE (08:00)
== END 2020-09-20 20:23 | disposition hospice, home (50) | DRG 176 ==
LOC: ER 10:25 → EH 15:16 → 4S 16:19
PROVIDERS: ADMIT Hospitalist; ATTEND Hospitalist
DX: I26.99 Other pulmonary embolism without acute cor pulmonale (principal); G93.40 Encephalopathy, unspecified; C79.31 Secondary malignant neoplasm of brain; J90 Pleural effusion, not elsewhere classified; E87.1 Hypo-osmolality and hyponatremia; N39.0 Urinary tract infection, site not specified; C50.212 Malignant neoplasm of upper-inner quadrant of left female breast; F32.9 Major depressive disorder, single episode, unspecified; B96.20 Unspecified Escherichia coli [E. coli] as the cause of diseases classified elsewhere; R07.9 Chest pain, unspecified; G89.3 Neoplasm related pain (acute) (chronic); R41.0 Disorientation, unspecified; Z51.5 Encounter for palliative care; K59.00 Constipation, unspecified; Z66 Do not resuscitate; F41.9 Anxiety disorder, unspecified; T40.2X5A Adverse effect of other opioids, initial encounter; Z17.1 Estrogen receptor negative status [ER-]; Z92.3 Personal history of irradiation; Z79.899 Other long term (current) drug therapy
CPT/HCPCS: 36415; 71045; 71250; 71275; 74177; 80053; 80202; 81001; 82565; 82962; 83735; 84484; 85025; 85027; 85610; 85730; 87040; 87077; 87086; 87088; 87150; 87186; 93005; 93010; 94799; 96361; 96374; 96375; 96376; 99285; J0692; J0696; J1170; J1642; J1644; J1650; J1885; J2270; J2405; J2550; J3370; J3480; J3490; J7030; J7060